=== PATIENT | female | born 1945 | race Hispanic/Latino ===

== ENCOUNTER → 2017-04-11 | Day surgery (SDC) | payer MEDICARE, OTHER ==
[2017-04-10 16:26] LABS: BASOPHILS % 0.6 % (0.0-1.0); EOSINOPHILS # (AUTO) 0.4 (0.0-0.4); EOSINOPHILS % 8.9 % (0.0-6.0); HEMATOCRIT 35.6 % (34.2-44.1); HEMOGLOBIN 11.4 g/dL (12.0-16.0); LYMPHOCYTES # (AUTO) 1.7 (1.0-3.2); LYMPHOCYTES % 35.1 % (18.0-39.1); MEAN CORPUSCULAR HEMOGLOBIN 28.8 pg (28-32); MEAN CORPUSCULAR VOLUME 89.9 fL (81-99); MONOCYTES # (AUTO) 0.5 (0.2-0.8); MONOCYTES % 10.7 % (4.4-11.3); NEUTROPHILS # (AUTO) 2.2 (2.1-6.9); NEUTROPHILS % 44.5 % (38.7-80.0); PLATELET COUNT 213 x10e3/uL (140-360); RED BLOOD COUNT 3.96 x10e6/uL (3.6-5.1); RED CELL DISTRIBUTION WIDTH 12.4 % (11.7-14.4)
[~2017-04-11] MED LIST: ALPRAZOLAM0.25 MG PO; CYMBALTA30 MG PO; DICYCLOMINE HCL10 MG PO; DIOVAN80 MG PO; FENTANYL CITRATE/PF 100MCG/2 ML INJ ONE; FIBER CAPS PO; FLAGYL500 MG PO; GABAPENTIN100 MG PO; HYOSCYAMINE SULFATE 0.5 MG/ML AMP ONE; MIDAZOLAM HCL 2 MG/2 ML VIAL ONE; MOBIC7.5 MG PO; NORCO 10-325 T1 EACH PO; OMEPRAZOLE40 MG PO; POTASSIUM CHLO10 ME1 PO; PREDNISONE5 MG PO; PROMETHAZINE HC25 M1 PO; PROPOFOL IV EMULSION 10 MG/ML 50 ML VIAL ONE; SUCRALFATE1 GM PO; TRAZODONE HCL50 MG PO; ULTRAM 50MG50 MG PO; Z.0.CYCLOBENZAPRINE1 PO; Z.0.CYMBALTA60 MG PO; Z.0.DICYCLOMINE HCL1 PO; Z.0.ESTRADIOL0.5 MG PO; Z.0.OMEPRAZOLE40 MG PO; Z.0.SINGULAIR10 MG PO; Z.0.TRAZODONE HCL100 PO; Z.1.DIOVAN HCT 1601 PO
[2017-04-11 16:40] LABS: WBC,FECAL (FECAL LACTOFERRIN) NEGATIVE (NEGATIVE)
--- NOTE | 2017-04-11 18:32 | Operative Report ---
DATE OF PROCEDURE: April 11, 2017 REFERRING PHYSICIAN: Dr. Juarez. PROCEDURE PERFORMED: EGD with esophageal dilation and biopsies and a colonoscopy with polypectomy and biopsies. INDICATIONS FOR EGD: Dysphagia, history of nausea and vomiting. INDICATIONS FOR COLONOSCOPY: Colorectal cancer screening, diarrhea, personal history of colon polyps. MEDICATION: Patient was done under MAC. Please see anesthesiologist's note. PROCEDURE: With patient in left lateral decubitus position, flexible fiberoptic Olympus gastroscope was introduced into the esophagus under direct visualization without any difficulty. There was some patchy erythema noted in distal esophagus. A mild stricture was noted at the GE junction that was dilated to size 52-Estonian Herron. The scope was then advanced with ease into the stomach traversing a small hiatal hernia. The mucosa overlying the antrum and the body revealed some patchy erythema and mild to moderate edema and biopsies were obtained and sent to stain for H. pylori. The pylorus was of normal contour and shape. Was intubated with ease and the scope was advanced all the way to the 2nd portion of the duodenum. The scope was then withdrawn slowly and biopsies were obtained from the proximal 2nd portion to rule out sprue considering patient's history of diarrhea. Mucosa overlying the duodenal bulb appeared to be within normal limits. The scope was then withdrawn back into the stomach and retroflexed and mucosa overlying the fundus and the cardia appeared to be within normal limits. The scope was then straightened out. The stomach was decompressed. The scope was subsequently withdrawn. Patient tolerated the procedure well. IMPRESSION: 1. Mild distal esophagitis. 2. Esophageal stricture at gastroesophageal junction dilated to a size 52-Estonian Herron. 3. Hiatal hernia. 4. Gastritis biopsied. Biopsy sent to stain for H. pylori. 5. Rule out sprue. PLAN: Follow up histology. Increase omeprazole to 40 mg 1 p.o. a.c. b.i.d. PROCEDURE: Patient was then turned around and after adequate lubrication of the anal canal a flexible fiberoptic Olympus colonoscope was inserted into the rectum with ease and advanced all the way to the cecum. Mucosa overlying the cecum appeared to be within normal limits. The ileocecal valve was intubated and the scope was advanced into the terminal ileum. Biopsies were obtained. The scope was then withdrawn back into the colon. It was then withdrawn slowly. Mucosa overlying the ascending and transverse grossly appeared to be within normal limits. There was some diverticular disease noted in the distal descending and the sigmoid colon and some scattered diverticula were noted proximally. Two polyps were snared from the sigmoid colon. The mucosa overlying the descending and the proximal sigmoid revealed some patchy mild inflammatory changes. Multiple random biopsies were obtained. The scope was then retroflexed into the distal rectum and small internal hemorrhoids were noted, none of which was actively bleeding. The scope was then straightened out. The rectosigmoid area as well as the distal rectal area were decompressed. Scope was subsequently withdrawn after securing an adequate stool specimen that was sent for the appropriate stool studies. Patient tolerated the procedure well. IMPRESSION. 1. Sigmoid colon polyps snared times 2. 2. Diverticulosis. 3. Mild proctosigmoiditis. 4. Internal hemorrhoids, none actively bleeding. PLAN: Follow up histology. Follow up stool studies. Initiate Bentyl 10 mg 1 p.o. q.i.d. Bentyl 10 mg 1 p.o. q.i.d.. Flagyl 500 mg 1 p.o. q.i.d. and Levaquin 500 mg 1 p.o. daily times 14 days. Patient will need a followup colonoscopy in 3 years. Job#: [id number] GH cc:RUBINA JUAREZ MD
[2017-04-11 22:10] LABS: C DIFFICILE TOXIN A&B AMP PROB **POSITIVE** (NEGATIVE)
== END | disposition home or self-care (01) ==
LOC: OR 09:53
PROVIDERS: ATTEND Internal Medicine Gastroenterology
DX: K63.89 Other specified diseases of intestine (principal); D12.5 Benign neoplasm of sigmoid colon; K29.50 Unspecified chronic gastritis without bleeding; K22.2 Esophageal obstruction; K21.0 Gastro-esophageal reflux disease with esophagitis; K57.30 Diverticulosis of large intestine without perforation or abscess without bleeding; K44.9 Diaphragmatic hernia without obstruction or gangrene; K64.8 Other hemorrhoids; J44.9 Chronic obstructive pulmonary disease, unspecified; I10 Essential (primary) hypertension; F32.9 Major depressive disorder, single episode, unspecified; N20.0 Calculus of kidney; F41.9 Anxiety disorder, unspecified; Z01.810 Encounter for preprocedural cardiovascular examination; Z01.812 Encounter for preprocedural laboratory examination; Z80.0 Family history of malignant neoplasm of digestive organs
CPT/HCPCS: 36415; 43239; 43450; 45385; 83630; 83993; 85025; 87045; 87177; 87328; 87493; 93005; J1980; J2250; 45380

== ENCOUNTER → 2018-11-18 | Day surgery (SDC) | payer MEDICARE, OTHER ==
[~2018-11-18] MED LIST changes: -FENTANYL CITRATE/PF 100MCG/2 ML INJ ONE; +HUMIRA40 MG/0.8 INJ; -HYOSCYAMINE SULFATE 0.5 MG/ML AMP ONE; -MIDAZOLAM HCL 2 MG/2 ML VIAL ONE
--- OUTSIDE RECORDS SUMMARY | 2018-11-18 06:11 | XMS REPORT ---
Author Author Kevin Rivera Organization [employer] Address Unknown Phone Unavailable Care Team Providers Care Window Shade Ring Sewer Name Role Phone Kevin Rivera CP Unavailable Allergies No Known Allergies Problems Problem Type Condition Code Onset Dates Condition Status Problem Long-term use of high-risk medication Z79.899 Active Problem Rheumatoid arthritis M06.9 Active Medications No Known Medications Results No Known Results Summary Purpose eClinicalWorks Submission
--- OUTSIDE RECORDS SUMMARY | 2018-11-18 06:11 | XMS REPORT ---
Author Author Kevin Rivera Organization [employer] Address Unknown Phone Unavailable Care Team Providers Care Financial Director Name Role Phone Kevin Rivera CP Unavailable Allergies No Known Allergies Problems Problem Type Condition Code Onset Dates Condition Status Problem Long-term use of high-risk medication Z79.899 Active Problem Rheumatoid arthritis M06.9 Active Medications No Known Medications Results No Known Results Summary Purpose eClinicalWorks Submission
--- OUTSIDE RECORDS SUMMARY | 2018-11-18 06:11 | XMS REPORT ---
Author Author [facility] Address Unknown Phone Unavailable Care Team Providers Care Assurance Sourcing Manager Name Role Phone DARREL AMATO Unavailable Unavailable Payers Payer Name Policy Type Policy Number Effective Date Expiration Date Problems This patient has no known problems. Allergies, Adverse Reactions, Alerts Allergy Name Allergy Type Status Severity Reaction(s) Onset Date Inactive Date Treating Clinician Comments Sulfa (Sulfonamide Antibiotics) DA Active 2018-07-06 00:00:00 tramadol DA Active NM 2018-07-06 00:00:00 Sulfa (Sulfonamide Antibiotics) DA Active 2016-06-04 00:00:00 tramadol DA Active NM 2016-06-04 00:00:00 Medications This patient has no known medications. Results Test Description Test Time Test Comments Text Results Atomic Results Result Comments BASIC METABOLIC PANEL 2018-07-06 12:01:00 SODIUM (test code=NA) 135 mmol/L 135-148 POTASSIUM (test code=K) 4.2 mmol/L 3.5-5.1 CHLORIDE (test code=CL) 102 mmol/L 101-109 CARBON DIOXIDE (test code=CO2) 22.7 mmol/L 21-32 ANION GAP (test code=GAP) 15 mmol/L 10-20 GLUCOSE (test code=GLU) 96 mg/dL 74-106 BLOOD UREA NITROGEN (test code=BUN) 22 mg/dL 3-21 GLOMERULAR FILTRATION RATE (test code=GFR) 32 mL/min >=60 Estimated GFR by using Modified MDRD formula.Chronic kidney disease is defined as either kidney damageor GFR <60 mL/min/1.73 m2 for >3 months. CREATININE (test code=CREAT) 1.60 mg/dL 0.55-1.3 BUN/CREATININE RATIO (test code=BUN/CREA) 13.8 10-20 CALCIUM (test code=CA) 8.5 mg/dL 8.4-10.2 [id number] 12:01:00* Test Item Value Reference Range Comments TROPONIN-I (test code=TROPI) <0.015 ng/mL 0.00-0.056 B-TYPE NATRIURETIC [id number] 12:01:00* Test Item Value Reference Range Comments B-TYPE NATRIURETIC PEPTIDE (test code=BNP) 24.6 pg/mL 0-100 BASIC METABOLIC [id number] 12:00:00* Test Item Value Reference Range Comments SODIUM (test code=NA) 135 mmol/L 135-148 POTASSIUM (test code=K) 4.2 mmol/L 3.5-5.1 CHLORIDE (test code=CL) 102 mmol/L 101-109 CARBON DIOXIDE (test code=CO2) 22.7 mmol/L 21-32 ANION GAP (test code=GAP) 15 mmol/L 10-20 GLUCOSE (test code=GLU) 96 mg/dL 74-106 BLOOD UREA NITROGEN (test code=BUN) 22 mg/dL 3-21 GLOMERULAR FILTRATION RATE (test code=GFR) 32 mL/min >=60 Estimated GFR by using Modified MDRD formula.Chronic kidney disease is defined as either kidney damageor GFR <60 mL/min/1.73 m2 for >3 months. CREATININE (test code=CREAT) 1.60 mg/dL 0.55-1.3 BUN/CREATININE RATIO (test code=BUN/CREA) 13.8 10-20 CALCIUM (test code=CA) 8.5 mg/dL 8.4-10.2 [id number] 12:00:00* Test Item Value Reference Range Comments TROPONIN-I (test code=TROPI) ng/mL 0-0.045 CBC W/O [id number] 11:44:00* Test Item Value Reference Range Comments WHITE BLOOD CELL (test code=WBC) 3.4 K/mm3 4.5-12.5 RED BLOOD CELL (test code=RBC) 3.37 mill/mm3 3.7-5.2 HEMOGLOBIN (test code=HGB) 9.9 gram/dL 11.5-15.5 HEMATOCRIT (test code=HCT) 30.9 % 36.0-46.0 MEAN CELL VOLUME (test code=MCV) 91.7 fL 80-98 MEAN CELL HGB (test code=MCH) 29.4 picogram 27.0-33.0 MEAN CELL HGB CONCETRATION (test code=MCHC) 32.0 gram/dL 33.0-36.0 RED CELL DISTRIBUTION WIDTH (test code=RDW) 14.9 % 11.6-16.2 RED CELL DISTRIBUTION WIDTH SD (test code=RDW-SD) 48.4 fL 39.1-52.0 PLATELET COUNT (test code=PLT) 144 K/mm3 150-450 MEAN PLATELET VOLUME (test code=MPV) 11.2 fL 6.7-11.0 - XR CHEST 1 [id number] 11:34:00 Name: SARA BRENNER [facility] : 1945 Age/S:73 /F [address] [facility] Unit#:[id number] Loc: [place] [address] Phys: Salazar Castillo MD Dis Date: PHONE #: [phone] Status: REG ER FAX #: [phone] Exam Date: 07/06/2018 Reason: CHEST PAIN EXAMS: CPT CODE: [id number] XR CHEST 1 V 23875 HISTORY: Chest pain. COMPARISON: March 02, 2018. Nodular density likely overlying button or less with the right lower lung field. This is not seen on the previous exam. No acute infiltrates, effusion or congestion is noted. Cardiomegaly. IMPRESSION: No acute infiltrates, effusion or congestion. Nodular radiopaque density overlapping the right lower lung field suggestive of a button measuring 1 cm. This was not present on the previous exam. at 1133 Reported and signed by: Salty Oates M.D. CC: Salazar Castillo MD Technologist: Alexandra Hammond Trnscrpt Data: 07/06/2018 (5486) t.LEIGH ANNR.TH4 Orig Print D/T: S: 07/06/2018 (4803) PAGE [address] CHEST [address] [facility] [address] [place], [place] [address] Patient Name: SARA BRENNER MR #: [id number] : 1945 Age/Sex: 71/F Req #: [id number] Adm Physician: Ordered by: DARREL AMATO MD Report #: [id number] Location: CT Room/Bed: Procedure: [id number] CT/CT CHEST WO Exam Date: 12/19 Exam Time: 1300 REPORT STATUS: Signed CO OCEDURE: CT CHEST WITHOUT CONTRAST COMPARISON: [facility], DX , CHEST SINGLE, 03/15/2016, 15:11. INDICATIONS: Chronic obstructive pulmo nary disease; dyspnea and chest pain. TECHNIQUE: Routine protocol Volume tric CT chest. No intravenous or enteric contrast. Multiplanar reformatted im ages. DLP: 309 mGy*cm FINDINGS: Lungs: Clear and symmetrically inflate d. No evidence of focal air trapping on single phase imaging. Airways: Norm al Pleura: Normal Lymph nodes: Normal Pulmonary arteries: Normal calib er. Main pulmonary artery diameter 2 cm. Thoracic aorta and great vessels: Normal caliber. Mild aortic arch and a lower thoracic/upper abdominal atheros clerosis. Heart and pericardium: Normal heart size. Mild pericardial thickenin g without effusion. Extensive calcification of the left, left anterior perez cending and circumflex coronary arteries. Mild right coronary artery calcific ation. Subdiaphragmatic organs: Unremarkable. Skeleton: Intact. Multilev el degenerative disc disease with bridging osteophytosis. Soft tissues: Nor mal CONCLUSION: 1. Lungs are unremarkable. 2. Severe coronary a rtery disease. 3. Mild pericardial thickening without effusion. Dict ated by: Corona Abrams M.D. on 12/19/2016 at 14:34 Electronically a pproved by: Corona Abrams M.D. on 12/19/2016 at 14:34 Di ctated By: CORONA ABRAMS MD 1434 COPY TO: DARREL AMATO MD
--- OUTSIDE RECORDS SUMMARY | 2018-11-18 06:11 | XMS REPORT | Clinical Summary ---
Author Author [facility] Address Unknown Phone Unavailable Care Team Providers Care Dog Boarder Name Role Phone Deirdre Garnica MD PCP Allergies Comments Active Allergy Reactions Severity Noted Date Sulfa (Sulfonamide 11/28/2015 Antibiotics) Medications End Date Status Medication Sig Dispensed Refills Start Date Active potassium chloride Take 10 mEq 0 (K-DUR,KLOR-CON) 10 MEQ by mouth CR tablet daily. Active predniSONE (DELTASONE) 5 Take 5 mg by 0 11/21/ MG tablet mouth daily. 6 Active valsartan (DIOVAN) 40 MG Take 40 mg by 0 tablet mouth 2 (two) times a day. Active omeprazole (PriLOSEC) 40 Take 40 mg by 0 MG capsule mouth 2 (two) times a day. Active dicyclomine (BENTYL) 10 Take 10 mg by 0 MG capsule mouth 3 (three) times a day. Active traZODone (DESYREL) 150 Take 150 mg 0 MG tablet by mouth nightly. Active DULoxetine (CYMBALTA) 60 Take 60 mg by 0 MG capsule mouth 2 (two) times a day. Active Problems Problem Noted Date COPD (chronic obstructive pulmonary disease) 12/04/2015 Hip pain 11/28/2015 Hypertension 11/28/2015 GERD (gastroesophageal reflux disease) 11/28/2015 Rheumatoid arthritis 11/28/2015 Social History Date Tobacco Use Types Packs/Day Years Used Former Smoker Drinks/Week oz/Week Comments Alcohol Use No Sex Assigned at Date Recorded Not on file Industry Job Start Date Occupation Not on file Not on file Not on file Travel End Travel History Travel Start No recent travel history available. Last Filed Vital Signs Not on file Plan of Treatment Health Maintenance Due Date Last Done Comments BREAST CANCER SCREENING 02/27/1996 COLONOSCOPY SCREENING 02/27/1996 SHINGLES VACCINES (#1) 02/27/1996 65+ PNEUMOCOCCAL VACCINE 2011 (1 of 2 - PCV13) INFLUENZA VACCINE 10/22/2018 Implants Device Identifier Shelf Expiration Date Model / Serial / Lot Implanted Type Area Manufactur er 03/23/2016 [id number] / / [id number] Cement Bone 40gr Smartset Mv Bone Screw Left: Hip DEPUY Endurance - [id number] ORTHO-KNEE Implanted: Qty: 1 on 11/30/2015 by Deirdre Marti MD at [facility] 11/21/2016 [id number] / / [id number] Cement Bone 40gr Smartset Mv Bone Screw N/A: N/A DEPUY Endurance - [id number] ORTHO-KNEE Implanted: Qty: 1 on 11/30/2015 by Deirdre Marti MD at [facility] 11/21/2016 [id number] / / [id number] Cement Bone 40gr Smartset Mv Bone Screw Left: Hip DEPUY Endurance - [id number] ORTHO-KNEE Implanted: Qty: 1 on 11/30/2015 by Deirdre Marti MD at [facility] 09/20/2020 [id number] / / [id number] Stem Fml Hip Cementd Std Ofst Sz 5 Hip Joint Left: Hip DEPUY 120mm Benson - [id number] Implants ORTHO Implanted: Qty: 1 on 11/30/2015 by Deirdre Garnica MD at [facility] 08/21/2020 [id number] / / [id number] Head Fml 12/14 Tprd Co-Cr 28mm Hip Joint Left: Hip DEPUY +1.5mm Articul/Curt - [id number] Implants ORTHO-KNEE Implanted: Qty: 1 on 11/30/2015 by Deirdre Marti MD at [facility] 07/21/2020 [id number] / / [id number] Cementralizer 10.0mm - [id number] IPM Left: Hip DEPUY Implanted: Qty: 1 on 11/30/2015 by IMPLANT ORTHOPAEDI Deirdre Garnica MD at [facility] [employer] 07/08/2020 [id number] / / [id number] Hip, Active Articulation E1 28mm Id IPM Left: Hip BIOMET, X 42mm Od - [id number] IMPLANT INC Implanted: Qty: 1 on 11/30/2015 by Deirdre Greenberg MD at [facility] 08/06/2025 [id number] / / [id number] [place] Multihole 52mm E - IPM Left: Hip BIOMET, [id number] IMPLANT INC Implanted: Qty: 1 on 11/30/2015 by Deirdre Greenberg MD at [facility] 06/06/2025 [id number] / / [id number] G7 Dual Mobility Cocr Liner, Size E IPM Left: Hip BIOMET, 42mm I.D - [id number] IMPLANT INC Implanted: Qty: 1 on 11/30/2015 by Deirdre Greenberg MD at [facility] [id number] / 06/20/2024 / Screw G7 6.5x30 - S03 - IPM Left: Hip BIOMET, [id number] IMPLANT INC Implanted: Qty: 1 on 11/30/2015 by Deirdre Greenberg MD at [facility] [id number] / 05/09/2025 / Screw G7 6.5x30 - S005/09/2025 - IPM Left: Hip BIOMET, [id number] IMPLANT INC Implanted: Qty: 1 on 11/30/2015 by Deirdre Greenberg MD at [facility] [id number] / 05/27/2025 / Screw G7 6.5x20 - S03 - IPM Left: Hip BIOMET, [id number] IMPLANT INC Implanted: Qty: 1 on 11/30/2015 by Deirdre Greenberg MD at [facility] 07/22/2020 [id number] / [id number] / [id number] Cement Bone Prep Univl Insrtr Sculp Surgical Left: Hip KELLEE Fml [place] Suct Sm - [id number] Implants; INSTRUMENT - [id number] Expanders; S Implanted: Qty: 1 on 11/30/2015 by Extenders; Deirdre Garnica MD at [facility] Surgical Wires Procedures Comments Procedure Name Priority Date/Time Associated Diagnosis TRANSFUSE RED BLOOD CELLS Routine 11/26/2017 5:25 PM CDT TRANSFUSE RED BLOOD CELLS Routine 11/26/2017 5:25 PM CDT after 11/17/2017 Results * Transfuse RBC (11/26/2017 5:25 PM CDT) Only the most recent of 2 results within the time period is included. after 11/17/2017 Insurance Type Payer Benefit Subscriber ID Effective Phone Address Plan / Dates Group Medicare MEDICARE MEDICARE xxxxxxxxxx 1995-P [place], PART A AND resent [place] B Medicaid MEDICAID MEDICAID xxxxxxxxx 2014-P resent ([place]) [place] [address] Advance Directives For more information, please contact: [phone] Patient Sales Technician Explanation Type Date Recorded Advance Directives, Living Will and Medical Power of Spring Upholsterer
--- OUTSIDE RECORDS SUMMARY | 2018-11-18 06:11 | XMS REPORT ---
Author Author Manohar King [facility] eClinicalWorks Address Unknown Phone Unavailable Care Team Providers Care Gas Torch Brazier Name Role Phone Manohar King Unavailable Allergies, Adverse Reactions, Alerts Substance Reaction Event Type sulfa Info Not Available Drug Allergy mtx nausea Non Drug Allergy Problems Problem Type Condition Code Onset Dates Condition Status Problem Long-term use of high-risk medication Z79.899 Active Assessment Rheumatoid arthritis M06.9 Active Problem Rheumatoid arthritis M06.9 Active Medications Medication Code System Code Instructions Start Date End Date Status Dosage Alprazolam ND 95010556672 0.25 MG Orally Twice a day Active 1 tablet Trazodone HCl [facility] 74183678084 150 MG Orally Once a day Active 1 tablet at bedtime Leflunomide ND 36015902621 20 MG Orally Once a day June 19, 2017 Active 1 tablet Dicyclomine HCl ND 56290145009 10 MG Orally three times a day Active 1 capsule Omeprazole ND 08319447943 40 MG Orally Once a day Active 1 capsule Duloxetine HCl ND 33286901985 60 MG Orally Twice a day Active 1 capsule Humira Pen ND 21377171653 40 MG/0.8ML Subcutaneous every 2 wks August 13, 2017 Dec 11, 2017 Active 0.8 ml PredniSONE ND 77530581515 20 MG Orally Once a day Active 1 tablet Estrogens Conj Synthetic A NDC 0 0.3 MG Orally Once a day [place] [address]-05 10 MEQ Orally Twice a day Active 1 capsule with food Vital Signs Date/Time: August 13, 2017 BMI 24.27 Index Weight 124.3 lbs Height 60 in Temperature 98.0 F Cardiac Monitoring Heart Rate 82 /min Blood Pressure Diastolic 80 mm Hg Blood Pressure Systolic 142 mm Hg Results No Known Results Summary Purpose eClinicalWorks Submission
--- OUTSIDE RECORDS SUMMARY | 2018-11-18 06:11 | XMS REPORT ---
Author Author Manohar King [facility] [employer] Address Unknown Phone Unavailable Care Team Providers Care Frame Repairer Name Role Phone Manohar King Unavailable Allergies No Known Allergies Problems Problem Type Condition Code Onset Dates Condition Status Problem Long-term use of high-risk medication Z79.899 Active Problem Rheumatoid arthritis M06.9 Active Medications Medication Code System Code Instructions Start Date End Date Status Dosage Humira Pen [facility] 87946602617 40 MG/0.8ML Subcutaneous every 2 wks Feb 06, 2018 Active 0.8 ml Results No Known Results Summary Purpose eClinicalWorks Submission
--- OUTSIDE RECORDS SUMMARY | 2018-11-18 06:11 | XMS REPORT ---
Author Author Kevin Rivera Organization [employer] Address Unknown Phone Unavailable Care Team Providers Care Convex Grinder Name Role Phone Kevin Rivera CP Unavailable Allergies No Known Allergies Problems Problem Type Condition Code Onset Dates Condition Status Problem Long-term use of high-risk medication Z79.899 Active Problem Rheumatoid arthritis M06.9 Active Medications No Known Medications Results No Known Results Summary Purpose eClinicalWorks Submission
--- OUTSIDE RECORDS SUMMARY | 2018-11-18 06:11 | XMS REPORT ---
Author Author Manohar King [facility] [employer] Address Unknown Phone Unavailable Care Team Providers Care Teleprinter Name Role Phone Manohar King Unavailable Allergies No Known Allergies Problems Problem Type Condition Code Onset Dates Condition Status Problem Long-term use of high-risk medication Z79.899 Active Problem Rheumatoid arthritis M06.9 Active Medications Medication Code System Code Instructions Start Date End Date Status Dosage PredniSONE [facility] 02949373541 20 MG Orally Once a day August 14, 2017 Active 1 tablet Results No Known Results Summary Purpose eClinicalWorks Submission
--- OUTSIDE RECORDS SUMMARY | 2018-11-18 06:11 | XMS REPORT ---
Author Author Manohar Knig [facility] [employer] Address Unknown Phone Unavailable Care Team Providers Care Technology Services Manager Name Role Phone Manohar King Unavailable Allergies No Known Allergies Problems Problem Type Condition Code Onset Dates Condition Status Problem Long-term use of high-risk medication Z79.899 Active Problem Rheumatoid arthritis M06.9 Active Medications Medication Code System Code Instructions Start Date End Date Status Dosage Humira Pen [facility] 81597826369 40 MG/0.4ML Subcutaneous every 2 wks Oct 22, 2018 Active 0.8 ml Results No Known Results Summary Purpose eClinicalWorks Submission
--- OUTSIDE RECORDS SUMMARY | 2018-11-18 06:11 | XMS REPORT ---
Author Author Kevin Rivera Organization [employer] Address Unknown Phone Unavailable Care Team Providers Care Upholsterer Outside Name Role Phone Kevin Rivera CP Unavailable Allergies No Known Allergies Problems Problem Type Condition Code Onset Dates Condition Status Problem Long-term use of high-risk medication Z79.899 Active Problem Rheumatoid arthritis M06.9 Active Medications No Known Medications Results No Known Results Summary Purpose eClinicalWorks Submission
--- OUTSIDE RECORDS SUMMARY | 2018-11-18 06:11 | XMS REPORT ---
Author Author Manohar King [facility] e[employer] Address Unknown Phone Unavailable Care Team Providers Care Final Inspection Supervisor Name Role Phone Manohar King Unavailable Allergies No Known Allergies Problems Problem Type Condition Code Onset Dates Condition Status Problem Long-term use of high-risk medication Z79.899 Active Problem Rheumatoid arthritis M06.9 Active Medications Medication Code System Code Instructions Start Date End Date Status Dosage Humira Pen [facility] 28893397578 40 MG/0.8ML Subcutaneous every 2 wks June 10, 2018 Active 0.8 ml Results No Known Results Summary Purpose eClinicalWorks Submission
--- OUTSIDE RECORDS SUMMARY | 2018-11-18 06:11 | XMS REPORT ---
Author Author Manohar King [facility] [employer] Address Unknown Phone Unavailable Care Team Providers Care Drain Layer Name Role Phone Manohar King Unavailable Allergies No Known Allergies Problems Problem Type Condition Code Onset Dates Condition Status Problem Long-term use of high-risk medication Z79.899 Active Problem Rheumatoid arthritis M06.9 Active Medications Medication Code System Code Instructions Start Date End Date Status Dosage PredniSONE [facility] 38585833797 20 MG Orally Once a day September 08, 2017 Active 1 tablet Results No Known Results Summary Purpose eClinicalWorks Submission
--- OUTSIDE RECORDS SUMMARY | 2018-11-18 06:11 | XMS REPORT | Continuity of Care Document ---
Author Author [employer] [facility] [employer] Address Unknown Phone Unavailable Care Team Providers Care Wad Printing Machine Operator Name Role Phone [employer] Unavailable Unavailable Problems Problem Status Onset Date Classification Date Reported Comments Source Long-term use of high-risk medication Active Problem 10/23/2018 Zenon Rivera Rheumatoid arthritis Active Problem 10/23/2018 Zenon Rivera Medications Medication Details Route Status Patient Instructions Ordering Provider Order Date Source Humira Pen 0.8 ml Subcutaneous Active 40 MG/0.4ML Subcutaneous every 2 wks Christine 10/22/2018 Zenon Rivera Humira Pen 0.8 ml Subcutaneous Active 40 MG/0.8ML Subcutaneous every 2 wks Christine 06/10/2018 Zenon Rivera Humira Pen 0.8 ml Subcutaneous Active 40 MG/0.8ML Subcutaneous every 2 wks Christine 02/06/2018 Zenon Rivera PredniSONE 1 tablet Orally Active 20 MG Orally Once a day Christine 09/08/2017 Zenon Rivera PredniSONE 1 tablet Orally Active 20 MG Orally Once a day Christine 08/14/2017 Zenon Rivera Humira Pen 0.8 ml Subcutaneous Active 40 MG/0.8ML Subcutaneous every 2 wks Christine 08/13/2017 Zenon Rivera Leflunomide 1 tablet Orally Active 20 MG Orally Once a day Christine 06/19/2017 Zenon Rivera Alprazolam 1 tablet Orally Active 0.25 MG Orally Twice a day Christine Zenon Rivera Trazodone HCl 1 tablet at bedtime Orally Active 150 MG Orally Once a day Christine Zenon Rivera Dicyclomine HCl 1 capsule Orally Active 10 MG Orally three times a day Christine Zenon Rivera Omeprazole 1 capsule Orally Active 40 MG Orally Once a day Christine Zenon Rivera Duloxetine HCl 1 capsule Orally Active 60 MG Orally Twice a day Christine Zenon Rivera PredniSONE 1 tablet Orally Active 20 MG Orally Once a day Christine Zenon Rivera Estrogens Conj Synthetic A 1 tablet Orally Active 0.3 MG Orally Once a day Christine Zenon Rivera Potassium Chloride 1 capsule with food Orally Active 10 MEQ Orally Twice a day Christine Zenon Rivera Potassium Chloride 1 capsule with food Orally Active 10 MEQ Orally Twice a day Christine Zenon Rivera Forteo 0.08 ml Subcutaneous Active 600 MCG/2.4ML Subcutaneous Once a day Christine Zenon Rivera Allergies, Adverse Reactions, Alerts Substance Category Reaction Severity Reaction type Status Date Reported Comments Source sulfa Adverse Reaction Info Not Available Adverse Reaction Active 04/15/2018 Zenon Rivera mtx Adverse Reaction nausea Adverse Reaction Active 04/15/2018 Zenon Rivera Immunizations No Data Provided for This Section Results No Data Provided for This Section Pathology Reports No Data Provided for This Section Diagnostic Reports No Data Provided for This Section Consultation Notes No Data Provided for This Section Discharge Summaries No Data Provided for This Section History and Physicals No Data Provided for This Section Vital Signs Vital Sign Value Date Comments Source Weight 129.6 04/15/2018 Zenon Rivera Height 61 04/15/2018 Zenon Rivera Temperature Oral (F) 97.3 F 04/15/2018 Zenon Rivera Heart Rate 96 04/15/2018 Zenon Rivera Diastolic (mm Hg) 62 04/15/2018 Zenon Rivera Systolic (mm Hg) 124 04/15/2018 Zenon Rivera Weight 124.3 08/13/2017 Zenon Scanloner Height 60 08/13/2017 Zenon Rivera Temperature Oral (F) 98.0 F 08/13/2017 Zenon Rivera Heart Rate 82 08/13/2017 Zenon Rivera Diastolic (mm Hg) 80 08/13/2017 Zenon Rivera Systolic (mm Hg) 142 08/13/2017 Zenon Scanloner Encounters No Data Provided for This Section Procedures No Data Provided for This Section Assessment and Plan No Data Provided for This Section Plan of Care No Data Provided for This Section Social History No Data Provided for This Section Family History No Data Provided for This Section Advance Directives No Data Provided for This Section Functional Status No Data Provided for This Section
--- OUTSIDE RECORDS SUMMARY | 2018-11-18 06:11 | XMS REPORT ---
Author Author Kevin Rivera Organization [employer] Address Unknown Phone Unavailable Care Team Providers Care Dye House Supervisor Name Role Phone Kevin Rivera CP Unavailable Allergies No Known Allergies Problems Problem Type Condition Code Onset Dates Condition Status Problem Long-term use of high-risk medication Z79.899 Active Problem Rheumatoid arthritis M06.9 Active Assessment Rheumatoid arthritis M06.9 Active Medications No Known Medications Results No Known Results Summary Purpose [employer] Submission
--- OUTSIDE RECORDS SUMMARY | 2018-11-18 06:11 | XMS REPORT ---
Author Author Manohar King [facility] [employer] Address Unknown Phone Unavailable Care Team Providers Care Teacher Advisor Name Role Phone Manohar King Unavailable Allergies, Adverse Reactions, Alerts Substance Reaction Event Type sulfa Info Not Available Drug Allergy mtx nausea Non Drug Allergy Problems Problem Type Condition Code Onset Dates Condition Status Problem Long-term use of high-risk medication Z79.899 Active Problem Rheumatoid arthritis M06.9 Active Assessment Rheumatoid arthritis M06.9 Active Assessment Long-term use of high-risk medication Z79.899 Active Medications Medication Code System Code Instructions Start Date End Date Status Dosage Estrogens Conj Synthetic A NDC 0 0.3 MG Orally Once a day Active 1 tablet Dicyclomine HCl [facility] 09551328891 10 MG Orally three times a day Active 1 capsule Potassium Chloride [facility] [address]-24 10 MEQ Orally Twice a day Active 1 capsule with food Trazodone HCl [facility] 51311731201 150 MG Orally Once a day Active 1 tablet at bedtime Leflunomide [facility] 62892713313 20 MG Orally Once a day June 19, 2017 Active 1 tablet PredniSONE ND 65644042513 20 MG Orally Once a day August 14, 2017 Inactive 1 tablet Omeprazole ND 06844075359 40 MG Orally Once a day Active 1 capsule Duloxetine HCl [facility] 26850711675 60 MG Orally Twice a day Active 1 capsule Alprazolam [facility] 98885934477 0.25 MG Orally Twice a day Active 1 tablet Forteo [facility] 96415460585 600 MCG/2.4ML Subcutaneous Once a day Active 0.08 ml Humira Pen ND 23831105987 40 MG/0.8ML Subcutaneous every 2 wks Feb 06, 2018 Active 0.8 ml Vital Signs Date/Time: Apr 15, 2018 BMI 24.49 Index Weight 129.6 lbs Height 61 in Temperature 97.3 F Cardiac Monitoring Heart Rate 96 /min Blood Pressure Diastolic 62 mm Hg Blood Pressure Systolic 124 mm Hg Results Name Result Date Reference Range Unit Abnormality Flag CBC W/AUTO DIFF ----MONOCYTES 13.4 [id number] 4.0-13.0 % H ----LYMPHOCYTES 41.6 [id number] 19.0-48.0 % ----HEMOGLOBIN 10.7 [id number] 11.5-15.5 G/DL L ----HEMATOCRIT 32.2 [id number] 34.0-45.0 % L ----MCV 84.3 [id number] 80.0-100.0 fL ----MCH 28.0 [id number] 27.0-34.0 PG ----MCHC 33.2 [id number] 32.0-35.5 G/DL ----PLATELET COUNT 219 20180415 130-400 K/UL ----RDW 12.7 [id number] 11.0-15.0 % ----WBC 3.7 [id number] 4.0-11.0 K/UL L ----NEUTROPHILS 38.0 [id number] 40.0-74.0 % L ----BASOPHILS 0.8 37170467 0.0-2.0 % ----RBC 3.82 [id number] 3.80-5.10 M/UL ----EOSINOPHILS 6.2 [id number] 0.0-7.0 % C-REACTIVE PROTEIN ----C-REACTIVE PROTEIN <0.1 [id number] <0.5 MG/DL COMPREHENSIVE METABOLIC PANEL ----CALC A/G RATIO 1.3 [id number] 1.0-2.6 RATIO ----CALC GLOBULIN 3.3 [id number] 1.9-3.7 G/DL ----ALKALINE PHOSPHATASE 65 20180415 40-142 U/L ----BILIRUBIN, TOTAL <0.2 [id number] <=1.2 MG/DL ----CHLORIDE 102 20180415 95-107 MEQ/L ----ALT 6 20180415 5-40 U/L ----POTASSIUM 4.7 20180415 3.5-5.4 MEQ/L ----AST 15 20180415 9-40 U/L ----SODIUM 139 20180415 133-146 MEQ/L ----CALC BUN/CREAT 15 20180415 6-28 RATIO ---- eGFR NON- AMER. 44 20180415 >60 ML/MIN/1.73 L ----CALCIUM 8.9 20180415 8.5-10.5 MG/DL ----CARBON DIOXIDE 25 20180415 19-31 MEQ/L ----ALBUMIN 4.2 20180415 3.5-5.2 G/DL ----PROTEIN, TOTAL 7.5 20180415 6.1-8.3 G/DL ----GLUCOSE 93 20180415 70-99 MG/DL ----BUN 18 20180415 8-23 MG/DL ----CREATININE 1.22 20180415 0.60-1.30 MG/DL ---- eGFR AMER. 51 20180415 >60 ML/MIN/1.73 L SEDIMENTATION RATE ----SEDIMENTATION RATE 38 [id number] 0-20 MM/HOUR H Summary Purpose [employer]ClinicalWorks Submission
--- NOTE | 2018-11-18 07:10 | NUR ---
SPIRITUAL CARE - Pre-Surgery Assessment: Pt in bed. Pt's daughter at bedside. Pt reported supportive attention from family and friends. Intervention: I provided pastoral presence, hospitality, and sympathetic listening. I acquainted pt with availability of hearing healthcare practitioner while hospitalized. Outcome: Pt expressed appreciation for visit. No need for follow up indicated at this time. [facility] O: [phone] Pager: [phone] ([phone] number calling from)
[2018-11-18 10:05] VITALS: BP 115/70
--- NOTE | 2018-11-18 12:40 | Operative Report ---
DATE OF PROCEDURE: 11/18/2018 SURGEON: Greg Dejesus MD PROCEDURES: EGD with esophageal dilatation and biopsies. INDICATIONS FOR PROCEDURE: Dysphagia, heartburn, bloating. MEDICATIONS: The patient was done under MAC, please see anesthesiologist's note. PROCEDURE IN DETAIL: With the patient in the left lateral decubitus position, a flexible fiberoptic Olympus gastroscope was introduced into the esophagus under direct visualization without any difficulty. There were some patchy erythema noted in the distal esophagus. There was a mild stricture noted at the GE junction that was dilated to size 54-Libyan Herron. The scope was then advanced with ease into the stomach traversing a small hiatal hernia. Mucosa overlying the antrum and the body revealed some patchy erythema and low-grade to moderate edema and biopsies were obtained and sent to stain for H. pylori. The pylorus was of normal contour and shape. It was intubated with ease and the scope was advanced all the way to the second portion of the duodenum. Biopsies were obtained from the second portion and duodenal bulb to rule out sprue. The scope was then withdrawn back into the stomach and retroflexed, and mucosa overlying the fundus appeared to be within normal limits. The previously described hiatal hernia was also noted in the retroflexed position. The scope was then straightened out, it was subsequently withdrawn, and the patient tolerated the procedure well. IMPRESSION: 1. Mild distal esophagitis. 2. Esophagus dilated to size 54-Libyan Herron. 3. Hiatal hernia. 4. Gastritis, biopsied, biopsies sent to stain for Helicobacter pylori. PLAN: Follow up histology. Increase omeprazole to 40 mg one p.o. before meals b.i.d. Greg Dejesus MD [facility] [place]/[facility] /[id number] cc: Dulce Centeno MD
== END | disposition home or self-care (01) ==
LOC: OR 06:01
PROVIDERS: ATTEND Internal Medicine Gastroenterology
DX: K21.0 Gastro-esophageal reflux disease with esophagitis (principal); K29.50 Unspecified chronic gastritis without bleeding; K22.2 Esophageal obstruction; K44.9 Diaphragmatic hernia without obstruction or gangrene; K57.30 Diverticulosis of large intestine without perforation or abscess without bleeding; Z86.010 Personal history of colon polyps; J44.9 Chronic obstructive pulmonary disease, unspecified; I10 Essential (primary) hypertension; M06.9 Rheumatoid arthritis, unspecified; Z88.6 Allergy status to analgesic agent; Z88.2 Allergy status to sulfonamides; Z01.810 Encounter for preprocedural cardiovascular examination; Z80.0 Family history of malignant neoplasm of digestive organs
CPT/HCPCS: 43239; 43450; 93005; J2704

== ENCOUNTER 2019-12-30 12:11 | Emergency (ER) | payer MEDICARE, OTHER ==
[~2019-12-30] VITALS: Ht 160 cm; Wt 61.7 kg
[~2019-12-30 12:11] MED LIST changes: -PROPOFOL IV EMULSION 10 MG/ML 50 ML VIAL ONE
[2019-12-30] MEDS ORDERED: FENTANYL CITRATE/PF 100MCG/2 ML INJ IV NR ×3 (12:30→15:00)
--- NOTE | 2019-12-30 12:43 | Emergency Department Note ---
History of Present Illnes History of Present Illness Chief Complaint: COVID PUI History of Present Illness This is a 74 year old female Chief Complaint Comment Patient in from home with new onset shortness of breath, chest pain with breathing, cough and headache for the last 3 days. Patient was covid positive about 5 weeks ago but was grossly asymptomatic per family. Patient does have a history of COPD and continues to smoke. Historian: Patient Arrival Mode: Car Yeast Tender Required: No Onset (how long ago): day(s) (3) Location: L chest Quality: Sharp Radiation: Reports non-radiation Severity: moderate Onset quality: gradual Duration (how long): day(s) (3) Timing of current episode: intermittent Progression: unchanged Chronicity: new Context: Denies recent illness, Denies recent surgery Relieving factors: none Exacerbating factors: none Associated symptoms: Reports denies other symptoms Treatments prior to arrival: none Past Medical/Family History Physician Review I have reviewed the patient's past medical and family history. Any updates have been documented here. Past Medical History Recent Fever: No Clinical Suspicion of Infectio: No New/Unexplained Change in Ment: No Other Medical History: DIVERTICULITIS RHEUMATOID ARTHRITIS CATARACT Covid 19 in November 2019 Other Surgery: L-7 FUSION Left Hip BILATERAL KNEE Other Last Tetanus: UNK Review of Systems Review of Systems Constitutional: Reports no symptoms EENTM: Reports no symptoms Cardiovascular: Reports as per HPI, Reports chest pain Respiratory: Reports no symptoms Gastrointestinal: Reports no symptoms Genitourinary: Reports no symptoms Musculoskeletal: Reports no symptoms Integumentary: Reports no symptoms Neurological: Reports no symptoms Psychological: Reports no symptoms Endocrine: Reports no symptoms Hematological/Lymphatic: Reports no symptoms Physical Exam Related Data Allergies: Coded Allergies: Sulfa (Sulfonamide Antibiotics) (Verified Allergy, Unknown, Anxiety, 03/14/16) Triage Vital Signs Vital Signs Date Time Temp Pulse Resp B/P (MAP) Pulse Ox O2 Delivery O2 Flow Rate FiO2 12/30/19 12:15 98.2 82 22 124/67 99 Room Air Vital signs reviewed: Yes Physical Exam CONSTITUTIONAL Constitutional: Present well-developed, Present well-nourished HENT HENT: Present normocephalic, Present atraumatic, Present oropharynx clear/moist, Present nose normal HENT L/R: Present left ext ear normal, Present right ext ear normal EYES Eyes: Reports PERRL, Reports conjunctivae normal NECK Neck: Present ROM normal PULMONARY Pulmonary: Present effort normal, Present breath sounds normal CARDIOVASCULAR Cardiovascular: Present regular rhythm, Present heart sounds normal, Present capillary refill normal, Present normal rate GASTROINTESTINAL Abdominal: Present soft, Present nontender, Present bowel sounds normal GENITOURINARY Genitourinary: Present exam deferred SKIN Skin: Present warm, Present dry MUSCULOSKELETAL Musculoskeletal: Present ROM normal NEUROLOGICAL Neurological: Present alert, Present oriented x 3, Present no gross motor or sensory deficits PSYCHOLOGICAL Psychological: Present mood/affect normal, Present judgement normal Results Laboratory Lab results reviewed: Yes Imaging Imaging results reviewed: Yes Diagnostics Tests Diagnostic test(s) reviewed: Yes Assessment & Plan Medical Decision Making MDM 74-year-old female with past medical history significant for COPD presents for left-sided chest pain. She had COVID approximately 1 month ago. Initial differential includes pulmonary embolism versus ACS versus pneumonia among others. CT chest, CT head, labs and cardiac enzymes. Workup benign but does show a urinary tract infection. She was given Rocephin in the emergency department and will be prescribed Keflex to use at home. Discussed the patient and she is appropriate for discharge. Reassessment Reassessment time: 12:42 Reassessment Well appearing, NAD Assessment & Plan Final Impression: (1) UTI (urinary tract infection) Depart Disposition: HOME, SELF-CARE Last Vital Signs Date Time Temp Pulse Resp B/P (MAP) Pulse Ox O2 Delivery O2 Flow Rate FiO2 12/30/19 12:15 98.2 82 22 124/67 99 Room Air Home Meds Reported Medications Adalimumab (HUMIRA) 40 Mg/0.8 Ml Kit, 1 FLEX INJ WEEKLY 11/16/18 Duloxetine Hcl (CYMBALTA) 30 Mg Capsule.dr, 60 MG PO BID, #30 CAP 04/11/17 Alprazolam (ALPRAZOLAM) 0.25 Mg Tablet, 1 TAB PO Q8HR, #90 TAB 04/11/17 Omeprazole (OMEPRAZOLE) 40 Mg Capsule.dr, 40 MG PO DAILY 03/14/16 Trazodone Hcl (TRAZODONE HCL) 50 Mg Tablet, 40 MG PO HS, #30 TAB 03/14/16 Medications in the ED Fentanyl Citrate 50 mcg ONCE IV ; Start 12/30/19 at 12:30; Stop 12/30/19 at 13:59 MARIEL FARR MD Dec 30, 2019 12:43
[2019-12-30 12:53] LABS: BASOPHILS % 0.8 % (0.0-1.0); EOSINOPHILS # (AUTO) 0.2 (0.0-0.4); EOSINOPHILS % 4.7 % (0.0-6.0); HEMATOCRIT 33.3 % (34.2-44.1); HEMOGLOBIN 10.5 g/dL (12.0-16.0); LYMPHOCYTES # (AUTO) 1.6 (1.0-3.2); LYMPHOCYTES % 31.9 % (18.0-39.1); MEAN CORPUSCULAR HEMOGLOBIN 27.7 pg (28-32); MEAN CORPUSCULAR HGB CONC 31.5 g/dL (31-35); MEAN CORPUSCULAR VOLUME 87.9 fL (81-99); MONOCYTES # (AUTO) 0.5 (0.2-0.8); MONOCYTES % 8.8 % (4.4-11.3); NEUTROPHILS # (AUTO) 2.7 (2.1-6.9); NEUTROPHILS % 53.6 % (38.7-80.0); PLATELET COUNT 192 x10e3/uL (140-360); RED BLOOD COUNT 3.79 x10e6/uL (3.6-5.1); RED CELL DISTRIBUTION WIDTH 14.8 % (11.7-14.4)
--- OUTSIDE RECORDS SUMMARY | 2019-12-30 12:59 | XMS REPORT | Clinical Summary ---
Author Author [employer] Address Unknown Phone Unavailable Care Team Providers Care Power House Engineer Name Role Phone Deirdre Garnica MD PCP Allergies Comments Active Allergy Reactions Severity Noted Date Sulfa (Sulfonamide 11/28/2015 Antibiotics) Medications End Date Status Medication Sig Dispensed Refills Start Date Active potassium chloride Take 10 mEq 0 (K-DUR,KLOR-CON) 10 MEQ by mouth CR tablet daily. Active predniSONE (DELTASONE) 5 Take 5 mg by 0 11/21 / MG tablet mouth daily. 6 Active valsartan [...] Noted Date COPD (chronic obstructive pulmonary disease) 016 Hip pain 11/28/2015 Hypertension 11/28/2015 GERD (gastroesophageal reflux disease) 11/28/2015 Rheumatoid arthritis 11/28/2015 Surgical History Surgery Date Site/Laterality Comments JOINT REPLACEMENT HYSTERECTOMY BACK SURGERY laminectomy ARTHROPLASTY, HIP, TOTAL 11/30/2015 Hip/Left Proce dure: CONVERSION TO POSTERIOR TOTAL HIP ARTHROPLASTY; Surgeon: Deirdre gray MD; Location: [facility] OR; Service: Orth opedics; Laterality: Left; Medical devices from this surgery are i n the Implants section. Medical History Medical History Date Comments COPD (chronic obstructive pulmonary disease) (HCC) Arthritis Acid reflux Social History Date Tobacco Use Types Packs/Day Years Used Former Smoker Drinks/Week oz/Week Comments Alcohol Use No Sex Assigned at Date Recorded Not on file Last Filed Vital Signs Not on file Plan of Treatment Health Maintenance Due Date Last Done Comments BREAST CANCER SCREENING 02/27/1996 COLONOSCOPY SCREENING 02/27/1996 SHINGLES VACCINES (#1) 02/27/1996 65+ PNEUMOCOCCAL VACCINE 2011 (1 of 1 - PPSV23) INFLUENZA VACCINE 10/23/2019 Implants Device Identifier Shelf Expiration Date Model / Serial / L ot Implanted Type Area Manufactur er 03/23/2016 [id number] / / [id number] Cement Bone 40gr Smartset Mv Bone Screw Left: Hip D EPUY Endurance - [id number] ORTHO-KNEE Implanted: Qty: 1 on 11/30/2015 by Deirdre Marti MD at [facility] 11/21/2016 [id number] / / [id number] Cement Bone 40gr Smartset Mv Bone Screw N/A: N/A D EPUY Endurance - [id number] ORTHO-KNEE Implanted: Qty: 1 on 11/30/2015 by Deirdre Marti MD at [facility] 11/21/2016 [id number] / / [id number] Cement Bone 40gr Smartset Mv Bone Screw Left: Hip D EPUY Endurance - [id number] ORTHO-KNEE Implanted: Qty: 1 on 11/30/2015 by Deirdre Marti MD at [facility] 09/20/2020 [id number] / / [id number] Stem Fml Hip Cementd Std Ofst Sz 5 Hip Joint Left: Hip DEPUY 120mm Mayes - [id number] Implants ORTHO Implanted: Qty: 1 on 11/30/2015 by Deirdre Garnica MD at [facility] 08/21/2020 [id number] / / [id number] Head Fml 12/14 Tprd Co-Cr 28mm Hip Joint Left: Hip DEPUY +1.5mm Articul/Curt - [id number] Implants ORTHO-KN EE Implanted: Qty: 1 on 11/30/2015 by Deirdre Marti MD at [facility] 07/21/2020 [id number] / / [id number] Cementralizer 10.0mm - [id number] IPM Left: Hip DEPUY Implanted: Qty: 1 on 11/30/2015 by IMPLANT ORT Deirdre Jaimes MD at [facility] [employer] 07/08/2020 [id number] / / [id number] Hip, Active Articulation E1 28mm Id IPM Left: Hip BIOMET, X 42mm Od - [id number] IMPLANT INC Implanted: Qty: 1 on 11/30/2015 by Deirdre Greenberg MD at [facility] 08/06/2025 [id number] / / [id number] Osseoti Multihole 52mm E - IPM Left: Hip BIOMET, [id number] IMPLANT INC Implanted: Qty: 1 on 11/30/2015 by Deirdre Greenberg MD at [facility] 06/06/2025 [id number] / / [id number] Dual Mobility Cocr Liner, Size E IPM Left: Hip BIOMET, 42mm I.D - [id number] IMPLANT INC Implanted: Qty: 1 on 11/30/2015 by Deirdre Greenberg MD at [facility] [id number] / 06/20/2024 / Screw G7 6.5x30 - S006/20/2024 - IPM Left: Hip BIOMET, [id number] IMPLANT INC Implanted: Qty: 1 on 11/30/2015 by Deirdre Greenberg MD at [facility] [id number] / 05/09/2025 / Screw G7 6.5x30 - S005/09/2025 - IPM Left: Hip BIOMET, [id number] IMPLANT INC Implanted: Qty: 1 on 11/30/2015 by Deirdre Greenberg MD at [facility] [id number] / 05/27/2025 / Screw G7 6.5x20 - S005/27/2025 - IPM Left: Hip BIOMET, [id number] IMPLANT INC Implanted: Qty: 1 on 11/30/2015 by Deirdre Greenberg MD at [facility] 07/22/2020 [id number] / [id number] / [id number] Cement Bone Prep [employer] Left: Hip KELLEE Fml [place] Suct Sm - [id number] Implants; IN STRUMENT - [id number] Expanders; S Implanted: Qty: 1 on 11/30/2015 by [employer]; Deirdre Garnica MD at [facility] Surgical Wires Results Not on fileafter 12/29/2018 Insurance Type Payer Benefit Subscriber ID Effective Phone Address Plan / Dates Group Medicare MEDICARE MEDICARE [id number] 1995-P [place], PART A AND resent [place] B Medicaid MEDICAID MEDICAID [id number] 2014-P resent Advance Directives For more information, please contact: [phone] Patient Family Preservation Worker Explanation Type Date Recorded Advance Directives, Living Will and Medical Power of Labor Relations Analyst
--- OUTSIDE RECORDS SUMMARY | 2019-12-30 12:59 | XMS REPORT | Continuity of Care Document ---
Author Author Tomo Clases SARA Weller Organization [employer] Address Unknown Phone Unavailable Care Team Providers Care Library Sales Consultant Name Role Phone [employer] Unavailable Un available Problems Problem Status Onset Date Classification Date Reported Comments Source Long-term use of high-risk medication Active Problem 04/2018 Zenon Rivera Rheumatoid arthritis Active Problem 10/23/2018 Zenon Rivera Medications Medication Details Route Status Patient Instructions Ordering Provider Order Date Source Humira Pen 0.8 ml Subcutaneous Active 40 MG/0.4ML Subcutaneou s every 2 wks Christine 10/22/2018 Zenon Rivera Humira Pen 0.8 ml Subcutaneous Active 40 MG/0.8ML Subcutaneou s every 2 wks Christine 06/10/2018 Zenon Rivera Humira Pen 0.8 ml Subcutaneous Active 40 MG/0.8ML Subcutaneou s every 2 wks Christine 02/06/2018 Zenon Rivera PredniSONE 1 tablet Orally Active 20 MG Orally Once a day Christine 09/08/2017 Zenon Rivera PredniSONE 1 tablet Orally Active 20 MG Orally Once a day Christine 08/14/2017 Zenon Rivera Humira Pen 0.8 ml Subcutaneous Active 40 MG/0.8ML Subcutaneou s every 2 wks Christine 08/13/2017 Zenon Rivera Leflunomide 1 tablet Orally Active 20 MG Orally Once a day Christine 06/19/2017 Zenon Rivera Alprazolam 1 tablet Orally Active 0.25 MG Orally Twice a day Christine Zenon Rivera Trazodone HCl 1 tablet at bedt merlin Orally Active 150 MG Orally Once a day Christine Zenon Rivera Dicyclomine HCl 1 capsule Orally Active 10 MG Orally three time s a day Christine Zenon Rivera Omeprazole 1 capsule Orally Active 40 MG Orally Once a day Christine Maycol Rivera Duloxetine HCl 1 capsule Orally Active 60 MG Orally Twice a da y Christine Zenon Rivera PredniSONE 1 tablet Orally Active 20 MG Orally Once a day Christine Maycol rogers Rivera Estrogens Conj Synthetic A 1 t ablet Orally Active 0.3 MG Orally Once a day Christine Zenon Scanloner Potassium Chloride 1 capsule w ith food Orally Active 10 MEQ Orally Twice a day Christine Zenon Scanloner Potassium Chloride 1 capsule w ith food Orally Active 10 MEQ Orally Twice a day Christine Zenon Rivera Forteo 0.08 ml Subcutaneous Active 600 MCG/2.4ML Subcutane ous Once a day Christine Zenon Rivera Allergies, [...] Date Comments Source Weight 129.6 04/15/2018 Zenon Scanloner Height 61 0 04/15/2018 Zenon Rivera Temperature Oral (F) 97.3 F 04/15/2018 Zenon Rivera Heart Rate 96 04/15/2018 Zenon Rivera Diastolic (mm Hg) 62 04/15/2018 Zenon Rivera Systolic (mm Hg) 124 04/15/2018 Zenon Scanloner Weight 124.3 08/13/2017 Zenon Rivera Height 60 0 08/13/2017 Zenon Rivera Temperature Oral (F) 98.0 F 08/13/2017 Zenon Rivera Heart Rate 82 08/13/2017 Zenon Rivera Diastolic (mm Hg) 80 08/13/2017 Zenon Rivera Systolic (mm Hg) 142 08/13/2017 Zenon Rivera Encounters No Data Provided for This Section [...]
--- OUTSIDE RECORDS SUMMARY | 2019-12-30 12:59 | XMS REPORT | Continuity of Care Document ---
Author Author [facility] t Organization [facility] Address [address] [place] [address] Phone Unavailable Care Team Providers Care Meter Setter Name Role Phone Kristie Garnica MD PCP DARREL AMATO Unavailable Payers Payer Name Policy Type Policy Number Effective Date Expiration Date S ource Problems Condition Name Condition Details Condition Category Status Onset Date Resolution Date Last Treatment Date Treating Clinician Comments Source COPD (chronic obstructive pulmonary disease) COPD (chr onic obstructive pulmonary disease) Disease Active 2015-12-04 00:00:00 Danny Rodriguez Hip pain Hip pain Disease Active 2015-11-28 00:00:00 Reynaldo Rodriguez Hypertension Hypertension Disease Active 2015-11-28 00:00:00 Reynaldo Rodriguez GERD (gastroesophageal reflux disease) GERD (gastroesophagea l reflux disease) Disease Active 2015-11-28 00:00:00 Reynaldo Rodriguez Rheumatoid arthritis Rheumatoid arthritis Disease Active 00:00:00 Reynaldo Rodriguez Long-term use of high-risk medication Long-term use of high-risk medication Active Problem 10/23/2018 Zenon Rivera Problem Active 2018-10-23 02:45:54 Danica Fuentes Rheumatoid arthritis Rheu matoid arthritis Active Problem 10/23/2018 Zenon Rivera Problem Active 2018-10-23 02:45:54 Danica Fuentes Allergies, Adverse Reactions, Alerts Allergy Name Allergy Type Status Severity Reaction(s) Onset Date Inacti ve Date Treating Clinician Comments Source Sulfa (Sulfonamide Antibiotics) DA Active SV 2019-06-17 00 :00:00 [facility] tramadol DA Active CA 2019-06-17 00:00:00 [facility] Sulfa (Sulfonamide Antibiotics) DA Active SV 2018-07-06 00 :00:00 [facility] tramadol DA Active CA 2018-07-06 00:00:00 [facility] sulfa sulfa Active Info Not Available 2018-04-15 00:00:00 [facility] mtx mtx Active nausea 2018-04-15 00:00:00 [facility] Sulfa (Sulfonamide Antibiotics) DA Active 2016-06-04 00 :00:00 [facility] tramadol DA Active CA 2016-06-04 00:00:00 [facility] Sulfa (Sulfonamide Antibiotics) Propensity to adverse reactions to drug Active 2015-11-28 00:00:00 [facility] Social History Social Habit Start Date Stop Date Quantity Comments Source Sex Assigned At [facility] Alcohol intake 2015-12-05 00:00:00 2015-12-05 00:00:00 Current non-drinker of alcohol (finding) Reynaldo Rodriguez Smoking Status Start Date Stop Date Source Former smoker 2015-12-05 00:00:00 2015-12-05 00:00:00 Reynaldo Rodriguez Medications Ordered Medication Name Filled Medication Name Start Date Stop Da te Current Medication? Ordering Clinician Indication Dosage Frequency Signature (SIG) Comments Components Source Humira Pen 2018-10-22 00:00:00 Yes Wajeeha Christine 0.8 ml [facility] Humira Pen 2018-06-10 00:00:00 Yes Wajeeha Christine 0.8 ml [facility] Alprazolam 2018-04-23 03:47:47 Yes Wajeeha Christine 1 tablet [facility] Trazodone HCl 2018-04-23 03:47:47 Yes Wajeeha Christine 1 tablet at bedtime [facility] Dicyclomine HCl 2018-04-23 03:47:47 Yes Wajeeha Christine 1 capsule [facility] Omeprazole 2018-04-23 03:47:47 Yes Wajeeha Christine 1 capsule [facility] Duloxetine HCl 2018-04-23 03:47:47 Yes Wajeeha Christine 1 capsule [facility] Estrogens Conj Synthetic A 2018-04-23 03:47:47 Yes [place] bethea Christine 1 tablet [facility] Potassium Chloride 2018-04-23 03:47:47 Yes Wajeeha Yousa f 1 capsule with food [facility] Forteo 2018-04-23 03:47:47 Yes Wajeeha Christine 0.0 8 ml [facility] Humira Pen 2018-02-06 00:00:00 Yes Wajeeha Christine 0.8 ml [facility] PredniSONE 2017-09-08 00:00:00 Yes Wajeeha Christine 1 tablet [facility] PredniSONE 2017-08-21 02:47:37 Yes Wajeeha Christine 1 tablet [facility] Potassium Chloride 2017-08-21 02:47:37 Yes Wajeeha Yousa f 1 capsule with food [facility] PredniSONE 2017-08-14 00:00:00 Yes Wajeeha Christine 1 tablet [facility] Humira Pen 2017-08-13 00:00:00 Yes Wajeeha Christine 0.8 ml [facility] Leflunomide 2017-06-19 00:00:00 Yes Wajeeha Christine 1 tablet [facility] potassium chloride (K-DUR,KLOR-CON) 10 MEQ CR tablet 2 12:32:28 Yes 10meq QD Take 10 mEq by mouth daily. Reynaldo Rodriguez valsartan (DIOVAN) 40 MG tablet 2015-12-04 12:32:28 Yes 40mg Q.5D Take 40 mg by mouth 2 (two) times a day. Nilesh Rodriguez omeprazole (PriLOSEC) 40 MG capsule 2015-12-04 12:32:28 Yes 40mg Q.5D Take 40 mg by mouth 2 (two) times a day. Reynaldo Rodriguez dicyclomine (BENTYL) 10 MG capsule 2015-12-04 12:32:28 Y es 10mg [id number] Take 10 mg by mouth 3 (three) times a day. Reynaldo Rodriguez traZODone (DESYREL) 150 MG tablet 2015-12-04 12:32:28 Yes 150mg QD Take 150 mg by mouth nightly. Reynaldo carmichael DULoxetine (CYMBALTA) 60 MG capsule 2015-12-04 12:32:28 Yes 60mg Q.5D Take 60 mg by mouth 2 (two) times a day. Reynaldo Rodriguez predniSONE (DELTASONE) 5 MG tablet 2015-11-22 00:00:00 Yes 5mg QD Take 5 mg by mouth daily. Reynaldo Rodriguez Vital Signs Vital Name Observation Time Observation Value Comments Source Weight 2018-04-15 17:45:00 [facility] Height 2018-04-15 17:45:00 [facility] Temperature Oral (F) 2018-04-15 17:45:00 97.3 F [facility] Heart Rate 2018-04-15 17:45:00 [facility] Diastolic (mm Hg) 2018-04-15 17:45:00 [facility] Systolic (mm Hg) 2018-04-15 17:45:00 [facility] Weight 2017-08-13 18:45:00 [facility] Height 2017-08-13 18:45:00 [facility] Temperature Oral (F) 2017-08-13 18:45:00 98.0 F [facility] Heart Rate 2017-08-13 18:45:00 [facility] Diastolic (mm Hg) 2017-08-13 18:45:00 [facility] Systolic (mm Hg) 2017-08-13 18:45:00 [facility] Procedures This patient has no known procedures. Plan of Care Planned Activity Planned Date Details Comments Source Future Scheduled Test 2019-10-23 00:00:00 INFLUENZA VACCINE [code = INFLUENZA VACCINE] [facility] Scheduled Test 2011 00:00:00 65+ PNEUMOCOCCAL V ACCINE (1 of 1 - PPSV23) [code = 65+ PNEUMOCOCCAL VACCINE (1 of 1 - PPSV23)] [facility] Scheduled Test 1996-02-27 00:00:00 BREAST CANCER SCRE ENING [code = BREAST CANCER SCREENING] [facility] Scheduled Test 1996-02-27 00:00:00 COLONOSCOPY SCREEN ING [code = COLONOSCOPY SCREENING] [facility] Scheduled Test 1996-02-27 00:00:00 SHINGLES VACCINES (#1) [code = SHINGLES VACCINES (#1)] [facility] Encounters Start Date/Time End Date/Time Encounter Type Admission Type [facility] Care Department Encounter ID Source 2018-10-22 13:18:00 2018-10-22 13:18:00 Outpatient Kevin Rivera MD [place] [id number] Zenon Rivera MD 2018-10-07 09:55:00 2018-10-07 09:55:00 Outpatient Kevin SILVESTRE [id number] Zenon Rivera MD 2018-06-10 13:47:00 2018-06-10 13:47:00 Outpatient Kevin SILVESTRE [id number] Zenon Rivera MD 2018-04-20 12:24:00 2018-04-20 12:24:00 Outpatient Kevin SILVESTRE [id number] Zenon Rivera MD 2018-04-15 13:28:00 2018-04-15 13:28:00 Outpatient Kevin Rivera MD [place] [id number] Zenon Rivera MD 2018-04-15 11:45:00 2018-04-15 11:45:00 Outpatient Kevin Rivera MD PA [id number] Zenon Rivera MD 2018-04-08 13:47:00 2018-04-08 13:47:00 Outpatient Kevin SILVESTRE [id number] Zenon Rivera MD 2018-02-06 10:14:00 2018-02-06 10:14:00 Outpatient Kevin Rivera MD PA [id number] Zenon Rivera MD 2017-10-23 11:35:00 2017-10-23 11:35:00 Outpatient Kevin Rivera MD PA [id number] Zenon Rivera MD 2017-09-08 15:15:00 2017-09-08 15:15:00 Outpatient Kevin Rivera MD PA [id number] Zenon Rivera MD 2017-08-14 11:52:00 2017-08-14 11:52:00 Outpatient Kevin Rivera MD [place] [id number] Zenon Rivera MD 2017-08-13 13:45:00 2017-08-13 13:45:00 Outpatient Kevin SILVESTRE [id number] Zenon Rivera MD Results Test Description Test Time Test Comments Results Result Comments Source BASIC METABOLIC PANEL 2019-06-19 04:28:00 Test Item SODIUM (test code = NA) 141 mmol/L 136-145 N POTASSIUM (test code = K) 4.0 mmol/L 3.5-5.1 N CHLORIDE (test code = CL) 110.0 mmol/L 98-107 H CARBON DIOXIDE (test code = CO2) 22.0 mmol/L 21-32 N ANION GAP (test code = GAP) 13.0 10-20 N GLUCOSE (test code = GLU) 94 mg/dL 74-106 N BLOOD UREA NITROGEN (test code = BUN) 9 mg/dL 7-18 N GLOMERULAR FILTRATION RATE (test code = GFR) 54 mL/min >=60 Estimated GFR by using Modified MDRD formula.Chronic kidney disease is defined as either kidney damageor GFR <60 mL/min/1.73 m2 for >3 months. CREATININE (test code = CREAT) 1.00 mg/dL 0.55-1.02 N Note change in reference range due to change in reagent. BUN/CREATININE RATIO (test code = BUN/CREA) 9.0 10-20 L CALCIUM (test code = CA) 8.9 mg/dL 8.5-10.1 N BASIC METABOLIC [id number] 04:23:00* Test Item Value Reference Range Interpretation Comments SODIUM (test code = NA) 141 mmol/L 136-145 N POTASSIUM (test code = K) 4.0 mmol/L 3.5-5.1 N CHLORIDE (test code = CL) 110.0 mmol/L 98-107 H CARBON DIOXIDE (test code = CO2) mmol/L 21-32 ANION GAP (test code = GAP) 10-20 GLUCOSE (test code = GLU) mg/dL 74-106 BLOOD UREA NITROGEN (test code = BUN) mg/dL 7-18 GLOMERULAR FILTRATION RATE (test code = GFR) mL/min >=60 CREATININE (test code = CREAT) mg/dL 0.55-1.02 BUN/CREATININE RATIO (test code = BUN/CREA) 10-20 CALCIUM (test code = CA) mg/dL 8.5-10.1 CBC W/AUTO [id number] 04:00:00* Test Item Value Reference Range Interpretation Comments WHITE BLOOD CELL (test code = WBC) 4.4 K/mm3 4.5-12.5 L RED BLOOD CELL (test code = RBC) 3.93 mill/mm3 3.7-5.2 N HEMOGLOBIN (test code = HGB) 10.5 gram/dL 11.5-15.5 L HEMATOCRIT (test code = HCT) 32.8 % 36.0-46.0 L MEAN CELL VOLUME (test code = MCV) 83.5 fL 80-98 N MEAN CELL HGB (test code = MCH) 26.7 picogram 27.0-33.0 L MEAN CELL HGB CONCETRATION (test code = MCHC) 32.0 gram/dL 33.0-36. 0 L RED CELL DISTRIBUTION WIDTH (test code = RDW) 13.3 % 11.6-16. 2 N RED CELL DISTRIBUTION WIDTH SD (test code = RDW-SD) 40.5 fL 37 .0-51.0 N PLATELET COUNT (test code = PLT) 237 K/mm3 150-450 N MEAN PLATELET VOLUME (test code = MPV) 9.7 fL 6.7-11.0 N NEUTROPHIL % (test code = NT%) 50.9 % 39.0-69.0 N IMMATURE GRANULOCYTE % (test code = IG%) 0.7 % 0.0-5.0 N LYMPHOCYTE % (test code = LY%) 32.0 % 25.0-55.0 N MONOCYTE % (test code = MO%) 9.8 % 0.0-10.0 N EOSINOPHIL % (test code = EO%) 5.7 % 0.0-5.0 H BASOPHIL % (test code = BA%) 0.9 % 0.0-1.0 N NUCLEATED RBC % (test code = NRBC%) 0.0 % 0-0 N NEUTROPHIL # (test code = NT#) 2.25 K/mm3 1.8-7.7 N IMMATURE GRANULOCYTE # (test code = IG#) 0.03 x10 3/uL 0-0.03 N LYMPHOCYTE # (test code = LY#) 1.41 K/mm3 1.0-5.0 N MONOCYTE # (test code = MO#) 0.43 K/mm3 0-0.8 N EOSINOPHIL # (test code = EO#) 0.25 K/mm3 0.0-0.5 N BASOPHIL # (test code = BA#) 0.04 K/mm3 0.0-0.2 N NUCLEATED RBC # (test code = NRBC#) 0.00 K/mm3 0.0-0.1 N MANUAL DIFF REQUIRED (test code = MDIFF) NO - CT ABD PELVIS W/O [id number] 18:01:00 Name: SARA BRENNER [facility] : 1945 Age/S: 74 / F [address] [facility] Unit #: [id number] Loc: [place] [address] Phys: Michael Cordero MD Acct: [id number] Dis Date: Status: ADM IN PHONE #: [phone] Exam Date: 06/18/2019 7410 FAX #: [phone] Reason: ABD PAIN/UTI/AMS EXAMS: CPT CODE: [id number] CT ABD PELVIS W/O CONT 72664 HISTORY: Abdominal pain with UTI. COMPARISON: May 01, 2019. Location: . CT abdomen and pelvis: Stone protocol. Automated exposure control. CT of abdomen: The lung bases demonstrates small left effusion with dependent changes. The liver limited by extensive motion artifact without gross mass on this noncontrast exam. No obvious architectural distortion. Patient is post cholecystectomy. The liver does not appear enlarged. Noncontrast spleen is unremarkable as well. The stomach distended incompletely and is limited in evaluation. Thickened wall likely from underdistention. Motion limited pancreas is within normal limits. Hyperplastic left adrenal. Right adre nal is within normal limits. Kidneys are free from hydroureteronep hrosis. No calyceal stones. No pathologic adenopathy. Atheroscle rotic change of the abdominal and pelvic vasculature. No bow el obstruction or colitis or diverticulitis or enteritis. CT PELVI S: Diverticulosis. Motion limited study. No definite diverticuli tis. Appendix is not visible. No inflammation. Unremarkabl e urinary bladder partially obscured by artifact patient's left hip prosth esis. Patient is post hysterectomy. No free fluid or free air. No pelvi c pathologic adenopathy. Subcutaneous tissues and the musculature are normal in appearance. No lytic or blastic lesions noted within the [place] skeleton. Hip prosthesis on the left resulting in extensive artifact. Grade 1 anterolisthesis of L4 over L5 and chronic loss of height of multi ple dorsal vertebral bodies and L3 vertebral body. PAGE 1 Signed Report (CONTINUED) Name: SARA BRENNER [facility] : 1945 Age/S: 74 / F [address] Unit #: [id number] Loc: [place] [address] Phys: Michael Cordero MD Acct: [id number] Dis Date: atus: ADM IN PHONE #: [phone] Exam Shaun e: 06/18/2019 1730 FAX #: [phone] Reason: ABD ASTON N/UTI/AMS EXAMS: CPT CODE: [id number] CT ABD PELVIS W/O CONT 42577 <Continued> IMPRESSION: No acute intra-abdominal or intrapelvic pathology within this motion limited exam. at 1801 Reported and signed by: Salty Oates M.D. CC: Michael Cordero Technologist:RT DIANA(R) CT CTDI: DLP: Trnscb Date/Time: 06/18/2019 (1800) t.LEIGH ANNR.TH4 Orig Print D/T: S: 06/18/2019 (1803) PAGE 2 Signed Report URINALYSIS [id number] 20:54:00* Test Item Value Reference Range Interpretation Comments UA COLOR (test code = COLU) YELLOW YELLOW UA APPEARANCE (test code = APPU) CLOUDY CLEAR A UA GLUCOSE DIPSTICK (test code = DGLUU) NEGATIVE mg/dL NEGATIVE UA BILIRUBIN DIPSTICK (test code = BILU) NEGATIVE mg/dL NEGATIVE UA KETONE DIPSTICK (test code = KETU) NEGATIVE mg/dL NEGATIVE UA SPECIFIC GRAVITY (test code = SGU) 1.015 1.001-1.035 UA BLOOD DIPSTICK (test code = HENRY) 0.2 mg/dL (2+) mg/dL NEGATIVE A UA PH DIPSTICK (test code = YONY) 5.5 5.0-8.0 UA PROTEIN DIPSTICK (test code = PROU) 50 (1+) mg/dL NEGATIVE A UA UROBILINIOGEN DIPSTICK (test code = URO) Normal mg/dL NEGATIVE UA NITRITE DIPSTICK (test code = HARVINDER) POSITIVE NEGATIVE A UA LEUKOCYTE ESTERASE W REFLEX (test code = LEUUR) 500 Tran/u L (3+) Tran/uL NEGATIVE A UA WBC (test code = WBCU) >200 per HPF 0-5 A UA RBC (test code = RBCU) 51-100 #/HPF 0-5 UA WBC CLUMPS (test code = WBCUCL) >10 /HPF NONE A UA EPITHELIAL CELLS (test code = EPIU) FEW per HPF FEW UA BACTERIA (test code = BACU) MANY #/HPF NONE A UA MUCUS (test code = MUCU) FEW #/LPF FEW Urine Source? Clean CatchDRUGS OF ABUSE SCREEN [id number] 20:54:00* Test Item Value Reference Range Interpretation Comments URN COCAINE (test code = COCAURN) POSITIVE <300 ng/mL A This test provides only a preliminary test result. A morespecific alternate chemical method must be used in order toobtain a confirmed analytical result. Gas chromatography/mass spectrometry (GC/MS) is thepreferred confirmatory method. Other chemical confirmationmethods are available. Clinical consideration and professional judgment should be applied to any drug of abusetest result, particularly when preliminary positive resultsare used.Unconfirmed screening results must not be used fornon-medical purposes (e.g., employment testing, legaltesting). URN CANNABINOIDS (test code = CANNABURN) NEGATIVE <50 ng/mL URN AMPHETAMINE (test code = AMPHETURN) NEGATIVE <1000 ng/mL URN BARBITURATE (test code = BARBITURN) NEGATIVE <200 ng/mL URN BENZODIAZEPINE (test code = BENZOURN) POSITIVE <200 ng/mL A This test provides only a preliminary test result. A morespecific alternate chemical method must be used in order toobtain a confirmed analytical result. Gas chromatography/mass spectrometry (GC/MS) is thepreferred confirmatory method. Other chemical confirmationmethods are available. Clinical consideration and professional judgment should be applied to any drug of abusetest result, particularly when preliminary positive resultsare used.Unconfirmed screening results must not be used fornon-medical purposes (e.g., employment testing, legaltesting). URN OPIATES (test code = OPIATURN) NEGATIVE <300 ng/mL URN PHENCYCLIDINE (PCP) (test code = PHENCURN) NEGATIVE <25 ng/ mL URN METHADONE (test code = METHAURN) NEGATIVE <300 ng/mL Urine Source? Clean [id number] 20:53:00* Test Item Value Reference Range Interpretation Comments AMMONIA (test code = AMM) 17 umol/L 11-32 N WASNT ON [id number].[email or web address] 06/17/19 2003URINALYSIS [id number] 20:32:00* Test Item Value Reference Range Interpretation Comments UA COLOR (test code = COLU) YELLOW YELLOW UA APPEARANCE (test code = APPU) CLOUDY CLEAR A UA GLUCOSE DIPSTICK (test code = DGLUU) NEGATIVE mg/dL NEGATIVE UA BILIRUBIN DIPSTICK (test code = BILU) NEGATIVE mg/dL NEGATIVE UA KETONE DIPSTICK (test code = KETU) NEGATIVE mg/dL NEGATIVE UA SPECIFIC GRAVITY (test code = SGU) 1.015 1.001-1.035 UA BLOOD DIPSTICK (test code = HENRY) 0.2 mg/dL (2+) mg/dL NEGATIVE A UA PH DIPSTICK (test code = YONY) 5.5 5.0-8.0 UA PROTEIN DIPSTICK (test code = PROU) 50 (1+) mg/dL NEGATIVE A UA UROBILINIOGEN DIPSTICK (test code = URO) Normal mg/dL NEGATIVE UA NITRITE DIPSTICK (test code = HARVINDER) POSITIVE NEGATIVE A UA LEUKOCYTE ESTERASE W REFLEX (test code = LEUUR) 500 Tran/u L (3+) Tran/uL NEGATIVE A UA WBC (test code = WBCU) >200 per HPF 0-5 A UA RBC (test code = RBCU) 51-100 #/HPF 0-5 UA WBC CLUMPS (test code = WBCUCL) >10 /HPF NONE A UA EPITHELIAL CELLS (test code = EPIU) FEW per HPF FEW UA BACTERIA (test code = BACU) MANY #/HPF NONE A UA MUCUS (test code = MUCU) FEW #/LPF FEW Urine Source? Clean CatchDRUGS OF ABUSE SCREEN [id number] 20:32:00* Test Item Value Reference Range Interpretation Comments URN COCAINE (test code = COCAURN) <300 ng/mL URN CANNABINOIDS (test code = CANNABURN) <50 ng/mL URN AMPHETAMINE (test code = AMPHETURN) <1000 ng/mL URN BARBITURATE (test code = BARBITURN) <200 ng/mL URN BENZODIAZEPINE (test code = BENZOURN) <200 ng/mL URN OPIATES (test code = OPIATURN) <300 ng/mL URN PHENCYCLIDINE (PCP) (test code = PHENCURN) <25 ng/ mL URN METHADONE (test code = METHAURN) <300 ng/mL Urine Source? Clean CatchBASIC METABOLIC [id number] 20:27:00* Test Item Value Reference Range Interpretation Comments SODIUM (test code = NA) 142 mmol/L 136-145 N POTASSIUM (test code = K) 4.4 mmol/L 3.5-5.1 N CHLORIDE (test code = CL) 111.0 mmol/L 98-107 H CARBON DIOXIDE (test code = CO2) 23.0 mmol/L 21-32 N ANION GAP (test code = GAP) 12.4 10-20 N GLUCOSE (test code = GLU) 114 mg/dL 74-106 H BLOOD UREA NITROGEN (test code = BUN) 18 mg/dL 7-18 N GLOMERULAR FILTRATION RATE (test code = GFR) 40 mL/min >=60 Estimated GFR by using Modified MDRD formula.Chronic kidney disease is defined as either kidney damageor GFR <60 mL/min/1.73 m2 for >3 months. CREATININE (test code = CREAT) 1.30 mg/dL 0.55-1.02 H Note change in reference range due to change in reagent. BUN/CREATININE RATIO (test code = BUN/CREA) 13.8 10-20 N CALCIUM (test code = CA) 8.8 mg/dL 8.5-10.1 N HEPATIC FUNCTION [id number] 20:27:00* Test Item Value Reference Range Interpretation Comments TOTAL PROTEIN (test code = PROT) 8.4 gram/dL 6.4-8.2 H ALBUMIN (test code = ALB) 3.0 g/dL 3.4-5.0 L GLOBULIN (test code = GLOB) 5.4 gram/dL 2.7-4.2 H ALBUMIN/GLOBULIN RATIO (test code = A/G) 0.6 0.75-1.50 L BILIRUBIN TOTAL (test code = BILT) 0.30 mg/dL 0.0-1.0 N BILIRUBIN DIRECT (test code = BILD) 0.12 mg/dL 0.0-0.20 N SGOT/AST (test code = AST) 10 IUnit/L 15-37 L SGPT/ALT (test code = ALT) 10 IUnit/L 12-78 L ALKALINE PHOSPHATASE TOTAL (test code = ALKP) 119 IUnit/L 45-117 H Note change in reference range due to change in reagent. [id number] 20:27:00* Test Item Value Reference Range Interpretation Comments TROPONIN-I (test code = TROPI) <0.015 ng/mL 0-0.045 N [id number] 20:27:00* Test Item Value Reference Range Interpretation Comments ACETAMINOPHEN (test code = ACET) < 10 mcg/mL 10-30 L A RANGE OF 10-30 mcg/mL IS A THERAPEUTIC RANGE. TOXIC CONCENTRATIONS: >150 mcg/mL AT 4 HOURS AFTER INGESTION >= 50 mcg/mL AT 12 HOURS AFTER INGESTION [id number] 20:27:00* Test Item Value Reference Range Interpretation Comments SALICYLATE (test code = AURELIA) 2.7 mg/dL 2.8-20.0 L [id number] 20:27:00* Test Item Value Reference Range Interpretation Comments ALCOHOL (test code = ALC) mg/dL 0-3 BASIC METABOLIC [id number] 20:27:00* Test Item Value Reference Range Interpretation Comments SODIUM (test code = NA) 142 mmol/L 136-145 N POTASSIUM (test code = K) 4.4 mmol/L 3.5-5.1 N CHLORIDE (test code = CL) 111.0 mmol/L 98-107 H CARBON DIOXIDE (test code = CO2) 23.0 mmol/L 21-32 N ANION GAP (test code = GAP) 12.4 10-20 N GLUCOSE (test code = GLU) 114 mg/dL 74-106 H BLOOD UREA NITROGEN (test code = BUN) 18 mg/dL 7-18 N GLOMERULAR FILTRATION RATE (test code = GFR) 40 mL/min >=60 Estimated GFR by using Modified MDRD formula.Chronic kidney disease is defined as either kidney damageor GFR <60 mL/min/1.73 m2 for >3 months. CREATININE (test code = CREAT) 1.30 mg/dL 0.55-1.02 H Note change in reference range due to change in reagent. BUN/CREATININE RATIO (test code = BUN/CREA) 13.8 10-20 N CALCIUM (test code = CA) 8.8 mg/dL 8.5-10.1 N HEPATIC FUNCTION [id number] 20:27:00* Test Item Value Reference Range Interpretation Comments TOTAL PROTEIN (test code = PROT) 8.4 gram/dL 6.4-8.2 H ALBUMIN (test code = ALB) 3.0 g/dL 3.4-5.0 L GLOBULIN (test code = GLOB) 5.4 gram/dL 2.7-4.2 H ALBUMIN/GLOBULIN RATIO (test code = A/G) 0.6 0.75-1.50 L BILIRUBIN TOTAL (test code = BILT) 0.30 mg/dL 0.0-1.0 N BILIRUBIN DIRECT (test code = BILD) 0.12 mg/dL 0.0-0.20 N SGOT/AST (test code = AST) 10 IUnit/L 15-37 L SGPT/ALT (test code = ALT) 10 IUnit/L 12-78 L ALKALINE PHOSPHATASE TOTAL (test code = ALKP) 119 IUnit/L 45-117 H Note change in reference range due to change in reagent. [id number] 20:27:00* Test Item Value Reference Range Interpretation Comments TROPONIN-I (test code = TROPI) <0.015 ng/mL 0-0.045 N [id number] 20:27:00* Test Item Value Reference Range Interpretation Comments ACETAMINOPHEN (test code = ACET) < 10 mcg/mL 10-30 L A RANGE OF 10-30 mcg/mL IS A THERAPEUTIC RANGE. TOXIC CONCENTRATIONS: >150 mcg/mL AT 4 HOURS AFTER INGESTION >= 50 mcg/mL AT 12 HOURS AFTER INGESTION [id number] 20:27:00* Test Item Value Reference Range Interpretation Comments SALICYLATE (test code = AURELIA) 2.7 mg/dL 2.8-20.0 L [id number] 20:27:00* Test Item Value Reference Range Interpretation Comments ALCOHOL (test code = ALC) < 3 mg/dL 0-3 N IN TERPRETATION: ETHYL ALCOHOL VALUES 50 MG/DL - NOT INTOXICATED 100 MG/DL - INTOXICATED 350-450 MG/DL- SEVERELY INTOXICATED >= 550 MG/DL - FATAL INTOXICATION BASIC METABOLIC [id number] 20:20:00* Test Item Value Reference Range Interpretation Comments SODIUM (test code = NA) 142 mmol/L 136-145 N POTASSIUM (test code = K) 4.4 mmol/L 3.5-5.1 N CHLORIDE (test code = CL) 111.0 mmol/L 98-107 H CARBON DIOXIDE (test code = CO2) mmol/L 21-32 ANION GAP (test code = GAP) 10-20 GLUCOSE (test code = GLU) mg/dL 74-106 BLOOD UREA NITROGEN (test code = BUN) mg/dL 7-18 GLOMERULAR FILTRATION RATE (test code = GFR) mL/min >=60 CREATININE (test code = CREAT) mg/dL 0.55-1.02 BUN/CREATININE RATIO (test code = BUN/CREA) 10-20 CALCIUM (test code = CA) mg/dL 8.5-10.1 HEPATIC FUNCTION [id number] 20:20:00* Test Item Value Reference Range Interpretation Comments TOTAL PROTEIN (test code = PROT) gram/dL 6.4-8.2 ALBUMIN (test code = ALB) g/dL 3.4-5.0 GLOBULIN (test code = GLOB) gram/dL 2.7-4.2 ALBUMIN/GLOBULIN RATIO (test code = A/G) 0.75-1.50 BILIRUBIN TOTAL (test code = BILT) mg/dL 0.0-1.0 BILIRUBIN DIRECT (test code = BILD) mg/dL 0.0-0.20 SGOT/AST (test code = AST) IUnit/L 15-37 SGPT/ALT (test code = ALT) IUnit/L 12-78 ALKALINE PHOSPHATASE TOTAL (test code = ALKP) IUnit/L 45-117 [id number] 20:20:00* Test Item Value Reference Range Interpretation Comments TROPONIN-I (test code = TROPI) ng/mL 0-0.045 [id number] 20:20:00* Test Item Value Reference Range Interpretation Comments ACETAMINOPHEN (test code = ACET) mcg/mL 10-30 [id number] 20:20:00* Test Item Value Reference Range Interpretation Comments SALICYLATE (test code = AURELIA) mg/dL 2.8-20.0 [id number] 20:20:00* Test Item Value Reference Range Interpretation Comments ALCOHOL (test code = ALC) mg/dL 0-3 CBC W/AUTO [id number] 20:12:00* Test Item Value Reference Range Interpretation Comments WHITE BLOOD CELL (test code = WBC) 5.5 K/mm3 4.5-12.5 N RED BLOOD CELL (test code = RBC) 3.90 mill/mm3 3.7-5.2 N HEMOGLOBIN (test code = HGB) 10.6 gram/dL 11.5-15.5 L HEMATOCRIT (test code = HCT) 33.2 % 36.0-46.0 L MEAN CELL VOLUME (test code = MCV) 85.1 fL 80-98 N MEAN CELL HGB (test code = MCH) 27.2 picogram 27.0-33.0 N MEAN CELL HGB CONCETRATION (test code = MCHC) 31.9 gram/dL 33.0-36. 0 L RED CELL DISTRIBUTION WIDTH (test code = RDW) 13.5 % 11.6-16. 2 N RED CELL DISTRIBUTION WIDTH SD (test code = RDW-SD) 42.0 fL 37 .0-51.0 N PLATELET COUNT (test code = PLT) 277 K/mm3 150-450 N MEAN PLATELET VOLUME (test code = MPV) 9.7 fL 6.7-11.0 N NEUTROPHIL % (test code = NT%) 66.0 % 39.0-69.0 N IMMATURE GRANULOCYTE % (test code = IG%) 0.5 % 0.0-5.0 N LYMPHOCYTE % (test code = LY%) 24.6 % 25.0-55.0 L MONOCYTE % (test code = MO%) 7.7 % 0.0-10.0 N EOSINOPHIL % (test code = EO%) 0.7 % 0.0-5.0 N BASOPHIL % (test code = BA%) 0.5 % 0.0-1.0 N NUCLEATED RBC % (test code = NRBC%) 0.0 % 0-0 N NEUTROPHIL # (test code = NT#) 3.61 K/mm3 1.8-7.7 N IMMATURE GRANULOCYTE # (test code = IG#) 0.03 x10 3/uL 0-0.03 N LYMPHOCYTE # (test code = LY#) 1.35 K/mm3 1.0-5.0 N MONOCYTE # (test code = MO#) 0.42 K/mm3 0-0.8 N EOSINOPHIL # (test code = EO#) 0.04 K/mm3 0.0-0.5 N BASOPHIL # (test code = BA#) 0.03 K/mm3 0.0-0.2 N NUCLEATED RBC # (test code = NRBC#) 0.00 K/mm3 0.0-0.1 N MANUAL DIFF REQUIRED (test code = MDIFF) NO - XR CHEST 1 [id number] 20:11:00 FAX: Guanako Spain DO [place]: B St: PRE Name: SARA LEE [facility] : [birth year] Age/S: 74/F [address] [facility] Unit #: [id number] Loc: [place] [address] Phys: Guanako Spain DO Acct: [id number] Dis Date: Status: PRE ER PHONE #: [phone] Exam Date: 06/17/2019 1950 FAX #: [phone] Reason: Altered Mental Status EXAMS: CPT CODE: [id number] XR CHEST 1 V 19344 HISTORY: Confusion. COMPARISON: July 06, 2018 Location: TH. No acute in filtrates, effusion or congestion is noted. Suboptimal inspiration. Mild cardiomegaly. IMPRESSION: No acute infiltra rogelio, effusion or congestion. at 2010 Reported and signed by: Salty Oates M.D. CC: Guanako Spain DO Technologist: Tommy DAVIS) Trnscrd Date/Time/By: 06/17/2019 (2010) : By: [email or web address] Orig Print D/T: S: 06/17/2019 (2013) PAGE 1 Signed Report - CT HEAD/BRAIN W/O CONT 2019-06-17 20:10:00 Name: SARA BRENNER [facility] : 1945 Age/S: 74 / F [address] Unit #: [id number] Loc: [place] [address] Phys: Guanako Spain DO Acct: [id number] Dis Date: Status: PRE ER PHONE #: [phone] Exam Date: 06/17/20191946 FAX #: [phone] Reason: Altered Mental Status EXAMS: CPT CODE: [id number] CT HEAD/BRAIN W/O CONT 41368 HISTORY: Confusion. COMPARISON: Head CT from July 04, 2010. Location: TH. CT brain without contrast: Automated exposure control. Note: Motion limited exam. No acute intracranial bleeds or extra-axial collections are noted. No acute territorial vascular infarction is noted. The sulci, gyri, ventricles and subarachnoid spaces and the basilar cisterns are normal for patient's age. No herniation or hydrocephalus or midline shift is noted. Mild periventricular ischemic gliosis is noted. Age-appropriate atrophy is noted as well. Portions of the visualized paranasal sinuses are normal. No obvious bony calvarial defect is noted. IMPRESSION: No acute intracranial bleeds or extra- axial collections. No acute territorial vascular infarction. No herniation or hydrocephalus or midline shift. Chronic white matter ischemic disease and atrophy . at 2009 Reported and signed by: Salty Oates M.D. PAGE 1 Signed Report (CONTINUED) Name: SARA BRENNER [facility] : 1945 Age/S: 74 / F [address] Unit #: [id number] Loc: [place]IANO [place] [address] Phys: Guanako Spain DO Acct: [id number] Dis Date: Status: PRE ER PHONE #: [phone] Exam Date: 06/17/20191946 FAX #: [phone] Reason: Altered Mental Status EXAMS: CPT CODE: [id number] CT HEAD/BRAIN W/O CONT 92442 < Continued> CC: Guanako Spain DO Technologist:Talia Mckinnon RT(R); JOSE Nelson CTDI: DLP: Trnscb Date/Time: 06/17/2019 (2009) RobinsonTH4 Orig Print D/T: S: 06/17/2019 (2012) PAGE 2 Signed Report URINALYSIS [id number] 20:08:00* Test Item Value Reference Range Interpretation Comments UA COLOR (test code = COLU) Light-Yellow YELLOW UA APPEARANCE (test code = APPU) CLEAR CLEAR UA GLUCOSE DIPSTICK (test code = DGLUU) NEGATIVE mg/dL NEGATIVE UA BILIRUBIN DIPSTICK (test code = BILU) NEGATIVE mg/dL NEGATIVE UA KETONE DIPSTICK (test code = KETU) NEGATIVE mg/dL NEGATIVE UA SPECIFIC GRAVITY (test code = SGU) 1.009 1.001-1.035 UA BLOOD DIPSTICK (test code = HENRY) Negative mg/dL NEGATIVE UA PH DIPSTICK (test code = YONY) 6.5 5.0-8.0 UA PROTEIN DIPSTICK (test code = PROU) NEGATIVE mg/dL NEGATIVE UA UROBILINIOGEN DIPSTICK (test code = URO) Normal mg/dL NEGATIVE UA NITRITE DIPSTICK (test code = HARVINDER) NEGATIVE NEGATIVE UA LEUKOCYTE ESTERASE W REFLEX (test code = LEUUR) NEGATIVE Tran/uL NEGATIVE UA WBC (test code = WBCU) NONE SEEN per HPF 0-5 UA RBC (test code = RBCU) 0-2 #/HPF 0-5 UA EPITHELIAL CELLS (test code = EPIU) None seen per HPF FEW UA BACTERIA (test code = BACU) NONE SEEN #/HPF NONE Urine Source? Clean CatchURINALYSIS [id number] 20:04:00* Test Item Value Reference Range Interpretation Comments UA COLOR (test code = COLU) Light-Yellow YELLOW UA APPEARANCE (test code = APPU) CLEAR CLEAR UA GLUCOSE DIPSTICK (test code = DGLUU) NEGATIVE mg/dL NEGATIVE UA BILIRUBIN DIPSTICK (test code = BILU) NEGATIVE mg/dL NEGATIVE UA KETONE DIPSTICK (test code = KETU) NEGATIVE mg/dL NEGATIVE UA SPECIFIC GRAVITY (test code = SGU) 1.009 1.001-1.035 UA BLOOD DIPSTICK (test code = HENRY) Negative mg/dL NEGATIVE UA PH DIPSTICK (test code = YONY) 6.5 5.0-8.0 UA PROTEIN DIPSTICK (test code = PROU) NEGATIVE mg/dL NEGATIVE UA UROBILINIOGEN DIPSTICK (test code = URO) Normal mg/dL NEGATIVE UA NITRITE DIPSTICK (test code = HARVINDER) NEGATIVE NEGATIVE UA LEUKOCYTE ESTERASE W REFLEX (test code = LEUUR) NEGATIVE Tran/uL NEGATIVE UA WBC (test code = WBCU) per HPF 0-5 UA RBC (test code = RBCU) per HPF 0-5 UA EPITHELIAL CELLS (test code = EPIU) per HPF Few UA BACTERIA (test code = BACU) per HPF NONE Urine Source? Clean Catch- CT ABD PELVIS W/O [id number] 18:29:00 Name: SARA BRENNER [facility] : 1945 Age/S: 74 / F [address] [facility] Unit #: [id number] Loc: GIULIANO [place] [address] Phys: Guanako Spain Acct: [id number] Dis Date: Status: REG ER PHONE #: Exam Date: 05/01/2019 181 FAX #: Reason: Left flank pain EXAMS: CPT CODE: [id number] CT ABD PELVIS W/O CONT 66881 HISTORY: Left flank pain. COMPARISON: CT scan from August 05, 2016. Location: . CT abdomen and pelvis: Stone protocol. Automated exposure control. CT of abdomen: The lung bases are clear. Dependent changes and scarring. Hepatic parenchyma is within normal limits. No discrete mass on this noncontrast exam. No architectural distortion. Beam hardening artifact from patient's arms limiting evaluation. The liver measured 15.5 cm in length. The liver appears hyperdense in relati on to the spleen with average Hounsfield unit measurement of 68. The sple duran average Hounsfield unit measurement of 47. These findings could suggest hemachromatosis. The spleen is not enlarged. No discrete mass. Chronic distal splenic artery aneurysm. Stomach distends incomple tely however it is normal in appearance. The noncontrast nagy creas and adrenals are normal. Kidneys are free from hydroureteron ephrosis. No calyceal stones are noted. No pathologic adeno jevon. Very heavy atherosclerotic change of the unopacified abdominal and pelvic vasculature. No bowel obstruction or colitis or diverticul itis or enteritis. Constipation. Diverticulosis. CT PELVIS : Appendix is not seen. No inflammatory changes. Pelvic bowel lo ops are unobstructed. Mild sigmoid diverticulosis. No diverticulitis. Unremarkable well-distended urinary bladder. Patient is post hysterectomy. No free fluid or free air. No pelvic pathologic adenopathy . Subcutaneous tissues and the musculature demonstrating normal PAGE 1 Signed Report (CONTINUED) N bárbara: SARA BRENNER [facility] : 1 04/29/1944 Age/S: 74 / F [address] [facility] Unit #: [id number] Loc: [facility] [place] [address] Phys: Guanako Spain DO Acct: [id number] Dis D ate: Status: REG ER PHONE #: [phone] Exam Date: 05/01/2019 181 FAX #: [phone] Reason: Left flank pain EXAMS: CPT CODE: [id number] CT ABD PELVIS W/O CONT 80164 <Continued> appearance. Hip prosthesis on the left resulting in extensive artifact. Osteoporosis and DJD. Grade 1 anterolisthesis of L3 over L4. Old compression fracture deformity of L2 vertebral body and T11 vertebral body which are unchanged from previous exam. IMPRESSION: No hydroureteronephrosis or calyceal stones. Unremarkable well-distended urinary bladder. Appendix is not visible but no inflammation. Colonic diverticulosis without diverticulitis. Hyperdense liver may suggest hemochromatosis. at 1826 Reported and signed by: Salty Oates M.D. CC: Guanako Spain DO Technologist:Bee Pierre RT(R),CT CTDI: DLP: Trnscb Date/Time: 05/01/2019 (1828) t.SDR.TH4 Orig Print D/T: S: 05/01/2019 (8949) PAGE 2 Signed Report BASIC METABOLIC [id number] 18:28:00* Test Item Value Reference Range Interpretation Comments SODIUM (test code = NA) 140 mmol/L 136-145 N POTASSIUM (test code = K) 3.7 mmol/L 3.5-5.1 N CHLORIDE (test code = CL) 109.0 mmol/L 98-107 H CARBON DIOXIDE (test code = CO2) 25.0 mmol/L 21-32 N ANION GAP (test code = GAP) 9.7 10-20 L GLUCOSE (test code = GLU) 90 mg/dL 74-106 N BLOOD UREA NITROGEN (test code = BUN) 21 mg/dL 7-18 H GLOMERULAR FILTRATION RATE (test code = GFR) 32 mL/min >=60 Estimated GFR by using Modified MDRD formula.Chronic kidney disease is defined as either kidney damageor GFR <60 mL/min/1.73 m2 for >3 months. CREATININE (test code = CREAT) 1.60 mg/dL 0.55-1.02 H Note change in reference range due to change in reagent. BUN/CREATININE RATIO (test code = BUN/CREA) 13.1 10-20 N CALCIUM (test code = CA) 8.4 mg/dL 8.5-10.1 L HEPATIC FUNCTION [id number] 18:28:00* Test Item Value Reference Range Interpretation Comments TOTAL PROTEIN (test code = PROT) 7.4 gram/dL 6.4-8.2 N ALBUMIN (test code = ALB) 3.1 g/dL 3.4-5.0 L GLOBULIN (test code = GLOB) 4.3 gram/dL 2.7-4.2 H ALBUMIN/GLOBULIN RATIO (test code = A/G) 0.7 0.75-1.50 L BILIRUBIN TOTAL (test code = BILT) 0.20 mg/dL 0.0-1.0 N BILIRUBIN DIRECT (test code = BILD) 0.05 mg/dL 0.0-0.20 N SGOT/AST (test code = AST) 14 IUnit/L 15-37 L SGPT/ALT (test code = ALT) 11 IUnit/L 12-78 L ALKALINE PHOSPHATASE TOTAL (test code = ALKP) 91 IUnit/L 45-117 N Note change in reference range due to change in reagent. [id number] 18:28:00* Test Item Value Reference Range Interpretation Comments LIPASE (test code = LIP) 160 U/L 73.0-393.0 N [id number] 18:28:00* Test Item Value Reference Range Interpretation Comments TROPONIN-I (test code = TROPI) <0.015 ng/mL 0-0.045 N CBC W/O [id number] 18:17:00* Test Item Value Reference Range Interpretation Comments WHITE BLOOD CELL (test code = WBC) 6.8 K/mm3 4.5-12.5 N RED BLOOD CELL (test code = RBC) 3.36 mill/mm3 3.7-5.2 L HEMOGLOBIN (test code = HGB) 9.5 gram/dL 11.5-15.5 L HEMATOCRIT (test code = HCT) 29.5 % 36.0-46.0 L MEAN CELL VOLUME (test code = MCV) 87.8 fL 80-98 N MEAN CELL HGB (test code = MCH) 28.3 picogram 27.0-33.0 N MEAN CELL HGB CONCETRATION (test code = MCHC) 32.2 gram/dL 33.0-36. 0 L RED CELL DISTRIBUTION WIDTH (test code = RDW) 13.2 % 11.6-16. 2 N PLATELET COUNT (test code = PLT) 151 K/mm3 150-450 N MEAN PLATELET VOLUME (test code = MPV) 10.9 fL 6.7-11.0 N BASIC METABOLIC [id number] 18:16:00* Test Item Value Reference Range Interpretation Comments SODIUM (test code = NA) 140 mmol/L 136-145 N POTASSIUM (test code = K) 3.7 mmol/L 3.5-5.1 N CHLORIDE (test code = CL) 109.0 mmol/L 98-107 H CARBON DIOXIDE (test code = CO2) mmol/L 21-32 ANION GAP (test code = GAP) 10-20 GLUCOSE (test code = GLU) mg/dL 74-106 BLOOD UREA NITROGEN (test code = BUN) mg/dL 7-18 GLOMERULAR FILTRATION RATE (test code = GFR) mL/min >=60 CREATININE (test code = CREAT) mg/dL 0.55-1.02 BUN/CREATININE RATIO (test code = BUN/CREA) 10-20 CALCIUM (test code = CA) mg/dL 8.5-10.1 HEPATIC FUNCTION [id number] 18:16:00* Test Item Value Reference Range Interpretation Comments TOTAL PROTEIN (test code = PROT) gram/dL 6.4-8.2 ALBUMIN (test code = ALB) g/dL 3.4-5.0 GLOBULIN (test code = GLOB) gram/dL 2.7-4.2 ALBUMIN/GLOBULIN RATIO (test code = A/G) 0.75-1.50 BILIRUBIN TOTAL (test code = BILT) mg/dL 0.0-1.0 BILIRUBIN DIRECT (test code = BILD) mg/dL 0.0-0.20 SGOT/AST (test code = AST) IUnit/L 15-37 SGPT/ALT (test code = ALT) IUnit/L 12-78 ALKALINE PHOSPHATASE TOTAL (test code = ALKP) IUnit/L 45-117 [id number] 18:16:00* Test Item Value Reference Range Interpretation Comments LIPASE (test code = LIP) U/L 73.0-393.0 [id number] 18:16:00* Test Item Value Reference Range Interpretation Comments TROPONIN-I (test code = TROPI) ng/mL 0-0.045 BASIC METABOLIC [id number] 12:01:00* Test Item Value Reference Range Interpretation Comments SODIUM (test code = NA) 135 mmol/L 135-148 N POTASSIUM (test code = K) 4.2 mmol/L 3.5-5.1 N CHLORIDE (test code = CL) 102 mmol/L 101-109 N CARBON DIOXIDE (test code = CO2) 22.7 mmol/L 21-32 N ANION GAP (test code = GAP) 15 mmol/L 10-20 N GLUCOSE (test code = GLU) 96 mg/dL 74-106 N BLOOD UREA NITROGEN (test code = BUN) 22 mg/dL 3-21 H GLOMERULAR FILTRATION RATE (test code = GFR) 32 mL/min >=60 Estimated GFR by using Modified MDRD formula.Chronic kidney disease is defined as either kidney damageor GFR <60 mL/min/1.73 m2 for >3 months. CREATININE (test code = CREAT) 1.60 mg/dL 0.55-1.3 H BUN/CREATININE RATIO (test code = BUN/CREA) 13.8 10-20 N CALCIUM (test code = CA) 8.5 mg/dL 8.4-10.2 N [id number] 12:01:00* Test Item Value Reference Range Interpretation Comments TROPONIN-I (test code = TROPI) <0.015 ng/mL 0.00-0.056 N B-TYPE NATRIURETIC [id number] 12:01:00* Test Item Value Reference Range Interpretation Comments B-TYPE NATRIURETIC PEPTIDE (test code = BNP) 24.6 pg/mL 0-100 N BASIC METABOLIC [id number] 12:00:00* Test Item Value Reference Range Interpretation Comments SODIUM (test code = NA) 135 mmol/L 135-148 N POTASSIUM (test code = K) 4.2 mmol/L 3.5-5.1 N CHLORIDE (test code = CL) 102 mmol/L 101-109 N CARBON DIOXIDE (test code = CO2) 22.7 mmol/L 21-32 N ANION GAP (test code = GAP) 15 mmol/L 10-20 N GLUCOSE (test code = GLU) 96 mg/dL 74-106 N BLOOD UREA NITROGEN (test code = BUN) 22 mg/dL 3-21 H GLOMERULAR FILTRATION RATE (test code = GFR) 32 mL/min >=60 Estimated GFR by using Modified MDRD formula.Chronic kidney disease is defined as either kidney damageor GFR <60 mL/min/1.73 m2 for >3 months. CREATININE (test code = CREAT) 1.60 mg/dL 0.55-1.3 H BUN/CREATININE RATIO (test code = BUN/CREA) 13.8 10-20 N CALCIUM (test code = CA) 8.5 mg/dL 8.4-10.2 N [id number] 12:00:00* Test Item Value Reference Range Interpretation Comments TROPONIN-I (test code = TROPI) ng/mL 0-0.045 CBC W/O [id number] 11:44:00* Test Item Value Reference Range Interpretation Comments WHITE BLOOD CELL (test code = WBC) 3.4 K/mm3 4.5-12.5 L RED BLOOD CELL (test code = RBC) 3.37 mill/mm3 3.7-5.2 L HEMOGLOBIN (test code = HGB) 9.9 gram/dL 11.5-15.5 L HEMATOCRIT (test code = HCT) 30.9 % 36.0-46.0 L MEAN CELL VOLUME (test code = MCV) 91.7 fL 80-98 N MEAN CELL HGB (test code = MCH) 29.4 picogram 27.0-33.0 N MEAN CELL HGB CONCETRATION (test code = MCHC) 32.0 gram/dL 33.0-36. 0 L RED CELL DISTRIBUTION WIDTH (test code = RDW) 14.9 % 11.6-16. 2 N RED CELL DISTRIBUTION WIDTH SD (test code = RDW-SD) 48.4 fL 39 .1-52.0 N PLATELET COUNT (test code = PLT) 144 K/mm3 150-450 L MEAN PLATELET VOLUME (test code = MPV) 11.2 fL 6.7-11.0 H - XR CHEST 1 [id number] 11:34:00 Name: SARA BRENNER [facility] : 1945 Age/S:73 /F [address] [facility] Unit#:[id number] Loc: [place] [address] Phys: Salazar Castillo MD Dis Date: PHONE #: [phone] Status: REG ER FAX #: [phone] Exam Date: 07/06/2018 Reason: CHEST PAIN EXAMS: CPT CODE: [id number] XR CHEST 1 V 76744 HISTORY: Chest pain. COMPARISON: March 02, 2018. [...] not present on the previous exam. at 1134 Reported and signed by: Salty Oates M.D. CC: Salazar Castillo MD Technologist: Alexandra Hammond Trnscrpt Data: 07/06/2018 (5569) t.SDR.TH4 Orig Print D/T: S: 07/06/2018 (2466) PAGE [address] CHEST WO [facility] [address] [address] Patient Name: SARA BRENNER MR #: [id number] : 1945 Age/Sex: 71/F Req #: [id number] Adm Physician: Ordered by: DARREL AMATO MD Report #: [id number] Location: CT Room/Bed: Procedure: [id number] CT/CT CHEST WO Exam Date: 12/19 Exam Time: 1300 REPORT STATUS: Signed MD OCEDURE: CT CHEST WITHOUT CONTRAST COMPARISON: [facility], , CHEST SINGLE, 03/15/2016, 15:11. INDICATIONS: Chronic [...]
[2019-12-30 13:05] LABS: BILIRUBIN,URINE NEGATIVE (NEGATIVE); CLARITY,URINE TURBID (CLEAR); COLOR,URINE YELLOW (YELLOW); KETONES,URINE NEGATIVE (NEGATIVE); LEUKOCYTE ESTERASE ,URINE LARGE (NEGATIVE); NITRITE,URINE NEGATIVE (NEGATIVE); PROTEIN,URINE DIPSTICK NEGATIVE (NEGATIVE); URINE UROBILINOGEN 0.2 mg/dL (0.2 - 1)
[2019-12-30 13:09] LABS: BACTERIA,URINE MANY /HPF; WBC,URINE (MAN) >50 /HPF (0-5)
[2019-12-30 13:13] LABS: ALBUMIN 3.6 g/dL (3.5-5.0); ALBUMIN/GLOBULIN RATIO 0.8 (0.8-2.0); CALCIUM 8.8 mg/dL (8.4-10.2); CREATININE, SERUM 1.43 mg/dL (0.57-1.11)
[2019-12-30] MEDS ORDERED: SODIUM CHLORIDE 0.9% 500ML 500 ML IV STA (13:22)
[2019-12-30] MEDS ORDERED: IOPAMIDOL 370 MG/ML 200 ML INFUS..BTL INJ ONE (13:39)
[2019-12-30] MEDS ORDERED: SODIUM CHLORIDE 0.9% 50ML 50 ML ONE (13:39)
[2019-12-30] MEDS ORDERED: CEFTRIAXONE SOD 1 GM/NS 50 ML 50 ML IV ONE (13:45)
--- NOTE | 2019-12-30 14:46 | Diagnostic Imaging Report ---
EXAM: CT Chest WITH contrast- Pulmonary Embolism Protocol INDICATION: ^Chest pain. PE protocol ^[id number] ^1400 COMPARISON: None TECHNIQUE: Chest was scanned utilizing a multidetector helical scanner from the lung apex through the level of the diaphragm after administration of IV contrast. Thin section reconstructions were obtained with special concentration on the pulmonary arteries. Coronal and sagittal reformations were obtained. Pulmonary embolism protocol was performed. IV CONTRAST: 100 cc of Isovue 370 RADIATION DOSE: Total DLP: 415 mGy*cm Dose modulation, iterative reconstruction, and/or weight based adjustment of the mA/kV was utilized to reduce the radiation dose to as low as reasonably achievable. COMPLICATIONS: None FINDINGS: LINES/ TUBES: None. PULMONARY ARTERIES: Negative for central, lobar or proximal segmental pulmonary embolism. Pulmonary artery is of normal caliber. LUNGS AND AIRWAYS: Negative for focal consolidation. Trace basilar atelectasis is noted. Large Central airways are patent. No suspicious pulmonary nodule or mass. PLEURA: The pleural spaces are clear. HEART AND MEDIASTINUM: The thyroid gland is normal. Multiple nonenlarged anterior mediastinal and mediastinal lymph nodes are noted. Negative for hilar or axillary adenopathy. The heart is normal in size. Negative for right ventricular enlargement or bowing of the interventricular septum. There is no pericardial effusion. Scattered atherosclerotic changes of the aortic arch and coronary arteries are noted.. UPPER ABDOMEN: Unremarkable. BONES: There is a severe compression deformity at T12 with approximately 50% height loss. Osseous structures are demineralized. Mild compression deformity of the superior endplate of T11 is noted. SOFT TISSUES: Unremarkable. IMPRESSION: 1. Negative for central pulmonary embolism or secondary signs of right heart strain. 2. Lungs are grossly clear. 3. Innumerable nonenlarged mediastinal and anterior mediastinal lymph nodes are uncertain etiology. 4. Severe compression fracture of T12 with approximately 50% height loss, new since 03/17/2016. If patient has point tenderness, can consider MRI to evaluate for edema and potential vertebral augmentation. Signed by: Shailesh Garnica MD on 12/30/2019 2:43 PM
--- NOTE | 2019-12-30 14:48 | Diagnostic Imaging Report ---
Examination: CT head without contrast Clinical Indication: Headache. Technique: Transaxial noncontrast images from the skull base through the vertex were obtained. Sagittal and coronal reformatted images were done. Dose modulation, iterative reconstruction, and/or weight based adjustment of the mA/kV was utilized to reduce the radiation dose to as low as reasonably achievable. Comparison: None. Findings: Scalp: No abnormalities. Bones: Intact. No fractures. No blastic or lytic lesions. Brain sulci: Appropriate for patient's age. Ventricles: Normal in size and configuration. No hydrocephalus. . Extra-axial space: No abnormalities. Parenchyma: There are patchy and confluent areas of low-attenuation within subcortical and periventricular white matter, nonspecific, but could represent microvascular ischemic disease. No masses, hemorrhage, or acute or chronic cortical based vascular insults. Suprasellar region: No abnormalities. Craniocervical junction: The foramen magnum is patent. No Chiari one malformation. Incidental findings: Atherosclerotic calcification of the cavernous and supraclinoid internal carotid and V4 segments of the bilateral vertebral arteries. Impression: 1. No acute intracranial finding. 2. Chronic microvascular ischemic change. Signed by: Dr. Anitha De Leon M.D. on 12/30/2019 2:45 PM
[2019-12-30] MEDS ORDERED: ACETAMINOPHEN 325 MG TAB PO ONE (15:30)
== END 2019-12-30 16:49 | disposition home or self-care (01) ==
LOC: ER 12:56
DX: R06.02 Shortness of breath (principal); R07.89 Other chest pain; R05 Cough; R51.9 Headache, unspecified; N39.0 Urinary tract infection, site not specified; J44.9 Chronic obstructive pulmonary disease, unspecified; F17.210 Nicotine dependence, cigarettes, uncomplicated
CPT/HCPCS: 36415; 70450; 71260; 80053; 81001; 83690; 83880; 84484; 85025; 87086; 87186; 93005; 99284; J0696; J3010; J7040; Q9967

== ENCOUNTER 2020-04-24 17:33 | Emergency (ER) | payer MEDICARE, OTHER ==
[~2020-04-24] VITALS: Ht 157.5 cm; Wt 54.4 kg
[2020-04-24] MEDS ORDERED: HYDROCODONE/APAP 10MG-325MG TAB PO ONE (18:30)
== END 2020-04-24 20:28 | disposition home or self-care (01) ==
LOC: ER 17:41
DX: M25.552 Pain in left hip (principal); R10.32 Left lower quadrant pain; W18.30XA Fall on same level, unspecified, initial encounter; M06.9 Rheumatoid arthritis, unspecified; Z87.19 Personal history of other diseases of the digestive system
CPT/HCPCS: 99283